=== PATIENT | male | born 1945 | race Caucasian/White ===

== ENCOUNTER → 2023-03-27 07:03 | Day surgery (SDC) | payer OTHER, SELFPAY ==
[2023-03-27 07:47] LABS: Glucose - Point of Care 122 mg/dl (70-99)
[2023-03-27] MEDS: ELIQUIS 5 MG PO (08:43)
--- NOTE | 2023-03-27 09:21 | ITS.CL.CARDI ---
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
Cardioversion
Procedure Report:
Electrophysiology DC cardioversion report
Procedures performed:
1. DC cardioversion to normal sinus rhythm
Indication: Persistent atrial fibrillation
History of present illness: The patient is an 78-year-old man with persistent atrial fibrillation status post PVI x 2 who is referred for elective cardioversion. He is on Eliquis which has been uninterrupted for the last month.
Description of procedure: Informed consent was obtained. Sedation provided by anesthesia staff. The patient was cardioverted with 200 J to normal sinus rhythm. Device reprogramming was performed. The patient tolerated the procedure without
difficulty.
Complications: None
Assessment/Plan:
1. Continue medical therapy as prescribed.
== END ==
LOC: CATH 07:03
PROVIDERS: ATTENDING PHYSICIAN Internal Medicine Interventional Cardiology
DX: I48.19 Other persistent atrial fibrillation (principal); I48.92 Unspecified atrial flutter; I25.10 Atherosclerotic heart disease of native coronary artery without angina pectoris; I10 Essential (primary) hypertension; E78.5 Hyperlipidemia, unspecified; G47.33 Obstructive sleep apnea (adult) (pediatric); Z87.891 Personal history of nicotine dependence; Z79.01 Long term (current) use of anticoagulants; Z79.82 Long term (current) use of aspirin
CPT/HCPCS: 82962; 92960; 93005

== ENCOUNTER 2023-04-15 19:32 | Inpatient (IN) | payer OTHER, SELFPAY ==
[2023-04-15] VITALS (12 sets, daily range): BP systolic 111–167; BP diastolic 73–113; BMI 28.9; BMI 29.3
[2023-04-15 17:31] LABS: % Basophils 0.7 % (0-2); % Eosinophils 3.7 % (0-6); % Immature Granulocytes 0.7 % (0-0.5); % Monocytes 7.5 % (1.7-9.3); % Neutrophils 75.4 % (42.2-75.2); Absolute Basophils 0.1 10^3/uL (0-0.2); Absolute Eosinophils 0.3 10^3/uL (0-0.7); Absolute Immature Granulocytes 0.1 10^3/uL (0-0.05); Absolute Monocytes 0.6 10^3/uL (0.1-0.6); Absolute Neutrophils 6.1 10^3/uL (1.4-6.5); Hematocrit 39.7 % (39.0-52.0); Hemoglobin 13.2 g/dL (13.0-18.0); Mean Corp Hgb Conc. 33.2 g/dL (33.0-37.0); Mean Corpuscular Hgb 29.5 pg (27.0-31.0); Mean Corpuscular Volume 88.6 fL (80.0-94.0); Mean Platelet Volume 10.3 fL (7.4-10.4); Nucleated Red Blood Cells % 0 % (-); Platelet Count 483 10^3/uL (130-400); Red Blood Cell Count 4.48 10^6/uL (4.70-6.10); White Blood Cell Count 8.1 10^3/uL (4.8-10.8)
[2023-04-15 17:45] LABS: ALT (SGPT) 14 U/L (0-50); AST (SGOT) 23 U/L (17-59); Alkaline Phosphatase 151 U/L (38-126); Blood Urea Nitrogen 13 mg/dl (9-20); Calcium 8.1 mg/dl (8.4-10.2); Carbon Dioxide 21 mmol/L (22-30); Chloride 107 mmol/L (98-107); Estimated Creatinine Clearance 76 ml/min; Glucose 142 mg/dl (70-99); Potassium 4.5 mmol/L (3.5-5.1); Sodium 134 mmol/L (135-145); Total Bilirubin 1.4 mg/dl (0.2-1.3); Total Protein 6.2 g/dl (6.3-8.2); eGFR > 60.00
[2023-04-15 17:54] LABS: Troponin I < 0.012 ng/ml
[2023-04-15 18:11] LABS: NT-proBNP 8130 pg/ml
[2023-04-15 18:47] LABS: Urine Albumin 1+ (Neg - Trace); Urine Bilirubin Negative (Negative); Urine Character Very Cloudy (Clear); Urine Color Yellow; Urine Glucose Negative (Negative); Urine Ketone Negative (Negative); Urine Leukocyte Trace (Negative); Urine Nitrite Negative (Negative); Urine Occult Blood 4+ (Negative); Urine Specific Gravity 1.015 (<1.030); Urine Urobilinogen 2+ (Neg - 1+)
[2023-04-15] MEDS: LASIX 40 MG IV (18:53)
--- NOTE | 2023-04-15 18:55 | ED.GENMED ---
History of Present Illness
General
Chief Complaint: Heart Rate Problem
Time Seen by Provider: 04/15/23 17:23
Travel History
Have you had any contact with someone who has COVID-19?: No
Do you have any symptoms of coronavirus? Fever > 100 degrees, chills, cough, shortness of breath, sore throat, loss of taste or smell, muscle aches, or headache?: No
History of Present Illness
History of Present Illness:
78-year-old male with history of paroxysmal A-fib on Eliquis, hypertension presents to the emergency department for evaluation of dyspnea on exertion and general malaise. Symptoms have been ongoing intermittently since he underwent a cardiac
ablation at this hospital in February, but over the past few days been worse. He does not weigh himself routinely and is not on any diuretic medications. He did require an elective cardioversion in mid March due to recurrent A-fib. He has no
symptoms attributable to the A-fib at this time as he denies any palpitations or chest pain, states for as long as he can remember he has not had any symptomatic A-fib. Denies orthopnea or chest pain at present. No leg swelling.
No documented echocardiogram on file
Review of Systems
Review of Systems
Allergies reviewed?: Yes
All Other Systems: ROS reviewed and negative except as documented in HPI and ROS
Phy Exam
Physical Exam
Physical Exam:
GEN: Well appearing, NAD, WDWN
Eyes: PERRLA, EOMs intact, no scleral icterus
HENT: NCAT, oral mucosa moist, + JVD
Lungs: Normal respiratory effort, bibasilar crackles, no wheezes
Cardiac: RRR, no M/R/G, no peripheral edema. Radial pulses 2+ bilat
Neuro: AO x 3
MSK: No gross deformity or ecchymosis. No edema. No digital clubbing
Skin: No rashes, petechiae. Normal color, no pallor or jaundice.
Psych: Calm, cooperative, proper hygiene
Course
Orders/Labs/Results
Orders:
Orders
04/15/23 17:04
Electrocardiogram (*1) Urgent
Reason for Study: Chest Pain
Cardiac Monitoring- Treatment ONCE
EKG- Treatment ONCE
IV Insert/Care/Rem.- Treatment PRN
O2 Therapy [RESP] Urgent
Titrate/Wean O2 to maintain O2 sat greater than (%): 90
Special Instructions: Maintain sats >/=90%
Pulse Ox/spot Check [RESP] Urgent
Quantity: 1
Special Instructions: ON ROOM AIR
04/15/23 17:09
Complete Blood Count/With Diff Urgent
Comprehensive Metabolic Panel Urgent
NT-proBNP Urgent
Comment: ADD ON
Troponin I Urgent
04/15/23 17:37
Add On- LAB Urgent
Tests Added?: BNP
CR Chest - 2 Views Urgent
Comment:
Reason For Exam: SOB
04/15/23 18:34
Urinalysis Reflex To Culture Urgent
Date Specimen was Collected: 04/15/23
Time Specimen was Collected: 18:26
Urine Microscopic Reflex Cult Urgent
04/15/23 18:38
Diltiazem HCl [Cardizem] 20 mg IV NOW STA
04/15/23 18:45
Diltiazem 125 mg/125 ml Nss [Cardizem] 125 mg in 125 ml IV PER PROTOCOL
Initial dose in mg/hr, then titrate:: 5
Titrate to keep:: Heart rate 80-100 bpm
Titrate by mg/hr:: 5 mg/hr
Frequency of titrations (minutes):: 15
Maximum dose in mg/hr:: 15
Furosemide [Lasix] 40 mg IV ONCE ONE
Abnormal Lab Results
04/15/23 04/15/23
17:09 18:34
RBC 4.48 L 10^6/uL
(4.70-6.10)
RDW 16.0 H %
(11.5-14.5)
Plt Count 483 H 10^3/uL
(130-400)
Abs Immat Gran (auto) 0.1 H 10^3/uL
(0-0.05)
Absolute Lymphs (auto) 1.0 L 10^3/uL
(1.2-3.4)
Immature Gran % 0.7 H %
(0-0.5)
Neutrophils % 75.4 H %
(42.2-75.2)
Lymphocytes % 12.0 L %
(20.5-51.1)
Sodium 134 L mmol/L
(135-145)
Carbon Dioxide 21 L mmol/L
(22-30)
Glucose 142 H mg/dl
(70-99)
Calcium 8.1 L mg/dl
(8.4-10.2)
Total Bilirubin 1.4 H mg/dl
(0.2-1.3)
Alkaline Phosphatase 151 H U/L
(38-126)
Total Protein 6.2 L g/dl
(6.3-8.2)
Ur Occult Blood Reflex 4+ A
(Negative)
Urine Urobilinogen 2+ A
(Neg - 1+)
Leukocyte Esterase Rfl Trace A
(Negative)
Urine Albumin (Reflex) 1+ A
(Neg - Trace)
04/15/23 17:09
04/15/23 17:09
Vital Signs
Initial and Last Documented VS:
Initial Vital Signs
Temp Pulse
98.7 F 134
04/15/23 17:03 04/15/23 17:03
Last Documented Vital Signs
Temp Pulse Resp BP Pulse Ox
98.7 F 126 28 137/94 97
04/15/23 17:03 04/15/23 17:45 04/15/23 17:45 04/15/23 17:06 04/15/23 17:45
MDM/Problems Addressed
MDM/Problems Addressed:
78-year-old male presents in rapid atrial fibrillation. I suspect the majority of his symptoms are driven by acute congestive heart failure given the dyspnea on exertion, elevated BNP, increased vascular markings and left pleural effusion on chest
x-ray. I did discuss the possibility for elective cardioversion with the patient however he informs me that he has been cardioverted in the past without any sustained benefit from this. At this time given that he is not in extremis I do not feel
it is necessary to perform an urgent ED cardioversion. Rather we will rate control him and start him on diuresis in the hopes that he will convert spontaneously. Will admit to the hospitalist service for further management
Of note, the patient was spontaneously noted to have hematuria when voiding in the emergency department. He notes that this is the first time this is occurred and was not going going prior to current hospitalization. Urinalysis sent, will follow
while inpatient
Comment
Comment:
Initial EKG independently interpreted by me shows a rapid atrial fibrillation at a rate of 130 with lateral T wave inversions but no other acute ischemic changes.
*Critical Care Note
Total Time (30-74mins, 75-104mins- exclusive of procedures): 35 minutes
comment:
Critical care time: 35 minutes
Critical care time was exclusive of: Separately billable procedures, treating other patients, and teaching time
Critical care was necessary to treat or prevent imminent or life-threatening deterioration of the following conditions: Rapid atrial fibrillation/CHF
Critical care time spent personally by me on the following activities:
[x] Review of old charts
[x] Obtaining history from patient or surrogate
[x] Ordering and review of the laboratory studies
[x] Ordering and review of radiographic studies
[x] Ordering and performing treatments and interventions
[x] Patient patient's response to treatment
[x] Development of treatment plan with patient or surrogate
ED Attending Note
-
Portions of this chart may have been created with voice recognition software.� Occasional wrong word or��sound alike� substitutions may have occurred due to the inherent limitations of voice recognition software.
Discharge Plan
Departure
Patient Disposition: Admit
Date of Disposition: 04/15/23
Time of Disposition: 18:58
Admit to: IMU
Presentation/result/management discussed w/ accepting MD/DO: Hospitalist
Discharge Problem:
Atrial fibrillation with RVR
Prescriptions:
No Action
atorvastatin 10 mg Tablet
10 mg PO DAILY
metoprolol succinate 50 mg Tablet Extended Release 24 Hr
50 mg PO Q12H
ascorbic acid (vitamin C) [Vitamin C] 500 mg Tablet
500 mg PO DAILY
omeprazole 20 mg Capsule,Delayed Release(Dr/Ec)
20 mg PO DAILY
vitamin B complex Capsule
1 cap PO DAILY
Eliquis 5 mg Tablet
5 mg PO BID
ramipril 10 mg Capsule
10 mg PO BID
aspirin 81 mg Capsule
81 mg PO DAILY
ferrous sulfate [Iron (ferrous sulfate)] 325 mg (65 mg iron) Tablet
325 mg PO DAILY
Referrals:
Sheron Dow MD [Family Provider] -
Interventions
Interventions:
*Risk Screen - Suicide Last Done: 04/15/23 18:00
*General Assessment Last Done: 04/15/23 17:06
*Neglect/Abuse Screening Last Done: 04/15/23 18:00
ED- Fall Risk Assessment Last Done: 04/15/23 17:59
*ED COVID-19 Vaccine History Last Done: 04/15/23 17:05
ED- Cardiac Assessment Last Done: 04/15/23 17:59
ED- Pulmonary Assessment Last Done: 04/15/23 17:59
[2023-04-15] MEDS: CARDIZEM 20 MG IV (18:56)
[2023-04-15] MEDS: BENADRYL 12.5 MG IV (19:10)
[2023-04-15 19:29] LABS: Urine Red Blood Cell >100 /HPF (0-2)
[2023-04-15] MEDS: CARDIZEM 125 IV (19:40)
--- NOTE | 2023-04-15 19:40 | HPS.HSE ---
Family Physician
-
Family Physician: Sheron Dow
Chief Complaint
-
Fatigue and shortness of breath
History of Present Illness
Pleasant 78-year-old male who complains daughter at bedside with known history of A-fib and recently cardioversion anticoagulated with Eliquis, hypertension, and dyslipidemia. Presented to the hospital as he was not feeling well all day long today.
He admitted he was doing okay yesterday and even able to walk his dog 7 times yesterday but today he barely able to do 3 times and use as to cut it short because of the feeling fatigue and shortness of breath.
Denies any palpitation or any chest pain denies any fever or chill, no cough or congestion, no headache or vision change or any weakness or numbness in extremities.
Admit since January or February on chronic had a cardioversion done they change his anticoagulation from Pradaxa to Eliquis and since he has been taking Eliquis he is not doing well and not eating drinking well and has better taste in his mouth,
denies bleeding event or change in stool or urine color.
Noncompliant with medication.
Workup in the ER basically showed A-fib with RVR and elevated BNP but he does not look like fluid overloaded.
Proceed with his Lasix and Cardizem bolus and drip, review of some itching after 1 dose OF Benadryl and the symptoms resolved. Initial heart rate was 140s but now is in low 100 feels some improvement.
Medical History
Past Medical History
Past Medical History: Reports Other
Additional Past Medical History:
Past medical history reviewed:
A-fib anticoagulated with Eliquis
Pretension
Sleep apnea
C.
Social history: Lives at home with his independently, does not smoke and quit alcohol 15 years ago
Past Surgical History: Reports Other
Social History
Alcohol: Other
Family History
Family History: Other
Allergies / Home Medications
Allergies reflects when Allergies were last updated in [facility].
Home Medications with original date entered in [facility]
Allergy/Medication List:
Allergies
Allergy/AdvReac Type Severity Reaction Status Date / Time
clopidogrel [From Plavix] Allergy Severe Hives Verified 01/30/23 12:43
Home Medications
apixaban 5 mg tablet (Eliquis) 5 mg PO BID 03/14/22
ascorbic acid (vitamin C) 500 mg tablet (Vitamin C) 500 mg PO BID 03/14/22
atorvastatin 10 mg tablet 10 mg PO DAILY 03/14/22
metoprolol succinate 50 mg tablet,extended release 24 hr 50 mg PO BID 03/14/22
omeprazole 20 mg capsule,delayed release 20 mg PO DAILY PRN gi issues 03/14/22
vitamin B complex 1 cap PO DAILY 03/14/22
aspirin 81 mg capsule 81 mg PO HS 01/30/23
ramipril 10 mg capsule 10 mg PO BID 01/30/23
ferrous sulfate 325 mg (65 mg iron) tablet (Iron (ferrous sulfate)) 325 mg PO BID 02/21/23
amiodarone 200 mg tablet 200 mg PO DAILY 04/15/23
Review of Systems
-
A 12 point ROS was completed and negative except as noted: Yes
Physical Exam
Vital Signs
Vital Signs
Temp Pulse Resp BP Pulse Ox
98.7 F 118 29 118/73 95
04/15/23 17:03 04/15/23 19:04 04/15/23 19:04 04/15/23 19:04 04/15/23 19:04
physical exam:
General: Awake, alert and oriented x3, not in distress and holds appropriate conversation.
HEENT: No active discharge, ecchymosis or bruising, moist lips, tongue and mucous membrane.
Eyes: No discharge or red conjunctiva, no nystagmus, pupils are reactive and equal
Neck:Supple, no JVD no bruit no goiter.
Respiratory: Normal AP contour and diameter, normal chest wall movement, normal respiratory effort, no respiratory distress,
Lungs: Good air entry bilaterally, no wheezing or rhonchi, no rales or crackles
Heart: S1, S2 mildly tachycardic with irregular irregular rhythm, mild lower extremities edema, no added sound.
Gastrointestinal: Positive bowel sounds, soft, nontender, no guarding or rigidity or organomegaly
Musculoskeletal: , no chest wall abnormality or tenderness. All joints and extremities have good range of motion, no muscle tenderness or any joint swelling or tenderness.
Extremities: Mild pitting edema, good peripheral pulses, good range of motion
Skin: Warm and dry, no ulceration, normal color.
Neurological: Awake, alert and oriented x3, no facial droop, moves extremities freely speech clear and comprehensive, good muscle tone, normal sensory and motor function
Psychiatric: Normal mood, normal thought and judgment, normal affect,
Physical Exam
General: Other
Laboratory Results
-
04/15/23 17:09
04/15/23 17:09
Laboratory Results
Total Bilirubin 1.4 mg/dl (0.2-1.3) H 04/15/23 17:09
AST 23 U/L (17-59) 04/15/23 17:09
ALT 14 U/L (0-50) 04/15/23 17:09
Alkaline Phosphatase 151 U/L (38-126) H 04/15/23 17:09
Troponin I < 0.012 ng/ml 04/15/23 17:09
Chest x-ray:Mild left basilar opacification which could represent subsegmental atelectasis and small left pleural effusion. Pneumonia cannot be excluded.
EKG show A-fib with RVR, rate 130, QTc 479, nonspecific ST-T wave abnormality.
Data Reviewed
-
Diagnostic Radiology: Image Personally Visualized and interpreted, Discussed with Physician, Discussed with Nurse, Discussed with Patient and Discussed with Family
Medical Tests (Nuc Med, Echo, EKG etc): Image Personally Visualized and interpreted, Discussed with Nurse, Discussed with Patient and Discussed with Family
Lab Data: Labs Reviewed by me, Discussed with Nurse, Discussed with Patient and Discussed with Family
Old Records: Reviewed
Impression/Plan
-
IMPRESSION:
78-year-old male presented with fatigue and exertional shortness of breath started earlier today, which likely secondary to the A-fib with RVR with questionable CHF with possibility, does not look overloaded.
A-fib with RVR, with a long history of status post cardioversion recently, anticoagulated Eliquis,
Not doing well with Eliquis
Shortness of breath
Doubted CHF or fluid overload
Hypertension
Dyslipidemia
Hyponatremia
Mild metabolic acidosis
Hypocalcemia
Abnormal urinalysis but no urinary symptoms
PLAN:
Admit in IVU
Cardizem bolus for given and drip started both on hold. Was concern of allergy,, will start on a low-dose of Cardizem as heart rate still high and will monitor for any allergic reaction.
Continue milrinone and Lopressor
Recheck lab
Cardiology consult
Likely need an echo
Received a dose of IV Lasix will hold on further diuresis for now
Already feeling better with heart rate slowing down.
Monitor vital sign.
Hold ramipril as pressure on the low side and need rate control medication.
According to the patient since started on Eliquis he is not doing well prophylaxis appetite and having bitter taste in his mouth all the time, that was in January or February, I will hold Eliquis and start Xarelto see how is he doing on this. He
took his morning dose but not evening.
Continue omeprazole
All discussed with the patient and the daughter at the bedside
CODE STATUS full code
DVT prophylaxis Xarelto
[2023-04-15] MEDS: TOPROL XL 50 MG PO (21:51)
[2023-04-15] MEDS: XARELTO 20 MG PO (21:51)
--- NOTE | 2023-04-15 23:38 | PTCARENOTE ---
received the patient from the ED at approx 2130. AAox3. oob, standby assist. steady on his feet. denies any lightheadedness/dizziness. HR Afib 120s-130s. increased rates with movement. patient denies any palps/sob. cardizem gtt increased. cardizem
gtt currently at 15 ml/hr. 95% on RA. reviewed plan of care with patient and verbalized understanding. CHF/Afib booklets provided and answered all questions. call prince within reach. calls appropriately.
HR currently Afib 90s. bp 111/74.
patient urinated in the urine and some blood was noted on top of urinal. yellow urine. patient states abrasion on penis, 'it has happened before' per patient. on assessment, small amount of blood noted at the tip of penis. cleansed. educated patient
to inform Rn with any other changes. monitoring in urinal.
[2023-04-16] VITALS (7 sets, daily range): BP systolic 115–129; BP diastolic 66–86; BMI 28.6
[2023-04-16] MEDS: CARDIZEM 125 IV ×3 (03:25→20:13)
[2023-04-16 04:11] LABS: Blood Urea Nitrogen 14 mg/dl (9-20); Calcium 8.4 mg/dl (8.4-10.2); Carbon Dioxide 26 mmol/L (22-30); Chloride 104 mmol/L (98-107); Estimated Creatinine Clearance 63 ml/min; Glucose 110 mg/dl (70-99); Potassium 4.1 mmol/L (3.5-5.1); Sodium 139 mmol/L (135-145); eGFR > 60.00
[2023-04-16 04:41] LABS: TSH 1.67 uIU/ml (0.47-4.68)
--- NOTE | 2023-04-16 08:19 | W.PN.HOSP.TC ---
Today's Communication/Plan
-
Cardiology consult
Urology consult
Continue rate control
Assessment / Plan
Assessment / Plan
Gen-AAOx3, NAD
HEENT-NC, AT, anicteric, clear oral mm
Neck-supple
CV-reg, no M, +S1/S2
Lungs-clear B/L
Abd-soft, NT, ND
Ext-no edema
Musculoskeletal-no cyanosis, clubbing
Skin-warm and dry
Neuro-grossly non-focal
Psych-calm, cooperative
Acute hypoxic respiratory insufficiency - suspect related to uncontrolled and rapid atrial fibrillation. Symptoms resolved with rate control. Chest x-ray shows mild left basilar opacification possibly representing subsegmental atelectasis and
small left pleural effusion. Clinically doubt pneumonia or congestive heart failure.
Rapid atrial fibrillation -rate improved on Cardizem drip. Continue metoprolol, amiodarone. Was on Eliquis at home and patient was under the belief that it was making him feel lousy, short of breath. It was changed to Xarelto last night, but I
doubt the Eliquis was the etiology of his symptoms. Discussed with patient.
Cardiology consulted. Has had difficult to control atrial fibrillation requiring multiple cardioversions and ablation.
TSH normal.
Hyponatremia -resolved.
Hypocalcemia -resolved.
Essential hypertension -stable now. Had hypertensive urgency last night that resolved.
Hyperlipidemia -continue atorvastatin.
Hematuria -noted on urinalysis. He does not have a urologist. He had gross hematuria a few years ago but he did not pursue a workup. Will ask urology to see in consultation.
Full code
Anticipated Discharge: > 48 hours
Subjective/Interval History
-
Date of Service: April 16, 2023
Patient seen and examined. Feeling better. Shortness of breath resolved.
Objective Data
-
Labs:
Laboratory Results
04/16/23
03:29
Sodium 139
Potassium 4.1
Chloride 104
Carbon Dioxide 26
BUN 14
Creatinine 0.9
Glucose 110 H
Calcium 8.4
Vital Signs:
Vital Signs
Temp Pulse Resp BP Pulse Ox
97.6 F 105 16 115/66 93
04/16/23 06:52 04/16/23 08:00 04/16/23 06:52 04/16/23 06:52 04/16/23 06:52
I&O
04/15/23 04/16/23 04/17/23
06:59 06:59 06:59
Intake Total 150 / 150
Output Total 1800 / 1800
Balance -1650 / -1650
Review of Systems
-
History Source: Patient
All other systems: Reviewed and negative
--- NOTE | 2023-04-16 08:58 | CON.CAR ---
Addendum entered and electronically signed by Jaylon Alvarado DO 04/16/23 11:22:
I saw and examined the patient.
The Solar Power Installer's note was reviewed and I agree with the note.
Comment:
Plan:
Recent PVI feb 21 2023 with recurrence and CV Mar 27 2023 and presents with recurrent aFib with RVR
Reviewed with EP, Amiodarone 200 mg TID for now
IV Cardizem for now and cont outpt Toprol. If fails to convert then cardioversion in next 24-48 hrs.
Cont Eliquis as his insurance does not cover xarelto. Reviewed with CM.
Urology eval ongoing and will need urology clearance prior to cardioversion given hematuria.
Stop ASA as PCI is remote
Cont gentle diuresis. pBNP 8130. He had rash with lasix so would give IV Edecin 25 mg today.
Trop negative.
Original Note:
Consultation
Consultation Request
Date/Time Consultation Performed: 04/16/23
Requesting Provider: Dr. Pearson
Performing Provider: Chela Duran PA-C for Dr. Alvarado
Reason for Consultation: afib
Medical History
-
Chief Complaint: SOB
History of Present Illness:
Patient is an 78-year-old male with past medical history of CAD status post remote PCI of OM1/circumflex in 2002, hypertension, hypercholesterolemia, JESÚS not on CPAP, former smoker, persistent atrial fibrillation status post PVI 03/2022, with repeat
PVI 02/21/2023. He recurred postprocedure and required cardioversion on 03/27/2023. He presented back to ER yesterday with worsening dyspnea on exertion and was found to be in atrial fibrillation with rapid ventricular response. He previously had
been on amiodarone therapy, however this was stopped after his 2023 ablation. He reports approximately 6 pound weight loss over the last several months, unintentional. He reports poor appetite. Reports occasional dry cough, no fevers or chills.
He received IV Lasix x 1 in the ER last evening, and developed a rash, improved after Benadryl. Also with UA positive for 4+ occult blood and with dark urine which just started last evening.
PMH:
Persistent, symptomatic atrial fibrillation
History of PVI 03/2022, repeat PVI 02/21/2023
S/p cardioversion 03/27/2023
Previously on amiodarone, stopped post ablation
Chronic anticoagulation, previously with Pradaxa, more recently Eliquis
CAD status post remote PCI of OM1/circumflex in 2002
LVH
Hypertension
Hypercholesterolemia
JESÚS not on CPAP
GERD
Former smoker
Past Medical History
Past Medical History: Other (in HPI)
Social History
Tobacco: Former Smoker
Personal:
Living: With Family
Employment: Retired
Family History
Family History: Other (CVA in father)
Allergies / Home Medications
Allergy/AdvReac Type Severity Reaction Status Date / Time
clopidogrel [From Plavix] Allergy Severe Hives Verified 01/30/23 12:43
Medication Instructions Recorded Confirmed Type
apixaban 5 mg tablet (Eliquis) 5 mg PO BID Blood Clot 03/14/22 04/15/23 History
Prevention/Tx
ascorbic acid (vitamin C) 500 mg 500 mg PO BID Supplement 03/14/22 04/15/23 History
tablet (Vitamin C)
atorvastatin 10 mg tablet 10 mg PO DAILY High Cholesterol 03/14/22 04/15/23 History
metoprolol succinate 50 mg 50 mg PO BID Heart 03/14/22 04/15/23 History
tablet,extended release 24 hr Disease/Condition
omeprazole 20 mg capsule,delayed 20 mg PO DAILY PRN gi issues 03/14/22 04/15/23 History
release
vitamin B complex 1 cap PO DAILY Supplement 03/14/22 04/15/23 History
aspirin 81 mg capsule 81 mg PO HS Blood Clot 01/30/23 04/15/23 History
Prevention/Tx
ramipril 10 mg capsule 10 mg PO BID Blood Pressure 01/30/23 04/15/23 History
ferrous sulfate 325 mg (65 mg 325 mg PO BID Supplement 02/21/23 04/15/23 History
iron) tablet (Iron (ferrous
sulfate))
amiodarone 200 mg tablet 200 mg PO DAILY Arrhythmia 04/15/23 04/15/23 History
Review of Systems
-
History Source: Patient
All other systems: Negative unless noted
Physical Exam
Vital Signs
Temp Pulse Resp BP Pulse Ox
97.6 F 105 16 115/66 93
04/16/23 06:52 04/16/23 08:00 04/16/23 06:52 04/16/23 06:52 04/16/23 06:52
Lab Results
04/15/23 17:09
04/16/23 03:29
Troponin I < 0.012 ng/ml 04/15/23 17:09
Muz-K-Ugvoaikfstr Pept 8130 pg/ml 04/15/23 17:09
Physical Exam
General: No Apparent Distress and Comfortable
HEENT: Normocephalic, Anicteric and Moist Mucous Membranes
Respiratory: Crackles (at bases) and Non Labored Respirations
Cardiac: S1/S2 and Irregular Rhythm
GI: Soft, Non Tender, Non Distended and Normal Bowel Sounds
Musculoskeletal: No Clubbing, No Cyanosis and Edema (trace of B/L LE)
Skin: Warm and Dry
Neuro: AO x 3
Impression / Plan
-
Primary Harp Regulator: Dr. Houston of [facility]
Primary EP: Dr. Diaz
Assessment:
Presentation with STEPHENS
Persistent, symptomatic atrial fibrillation, now with RVR
History of PVI 03/2022, repeat PVI 02/21/2023
Previously on amiodarone, stopped post ablation 02/21/2023
S/p cardioversion 03/27/2023
Chronic anticoagulation, previously with Pradaxa, more recently Eliquis
Hematuria
CAD status post remote PCI of OM1/circumflex in 2002
LVH
Hypertension
Hypercholesterolemia
JESÚS not on CPAP
GERD
Former smoker
ECHO 2018: EF 55%, mild LVH, trace TR, PAP 19 mmHg
Plan:
-Patient who underwent recent repeat PVI 02/21/2023 with recurrence post requiring cardioversion 03/27/2023 presents back to ER with dyspnea on exertion. Found to be back in A-fib with RVR.
-Resume Amio at higher dose of 200 mg 3 times daily. Continue IV Cardizem at 15 for now. also on OP toprol 50mg BID.
-holding OP ramipril
-Reports generally not feeling well he thinks since transitioning from Pradaxa to Eliquis due to cost. He has been transitioned to Xarelto per primary service last evening.
-He is noted to have dark urine, and UA with 4+ occult blood and greater than 100 red blood cells. He does note some discomfort with urinating. Urology to evaluate. Hemoglobin stable. will stop asa with remote stent and current bleeding
-proBNP 8130. CXR with small L pleural effusion. Status post dose of IV Lasix 40mg last evening. Patient reportedly developed rash shortly after receiving dose, improved s/p benadryl. Weight reportedly down 5 pounds if accurate overnight. he is
not on diuretic as OP. if additional diuretic required, would consider edecrin.
-check echo, last from 2018 as above
-trop negative x1
-TSH WNL
-d/w nursing. d/w hospitalist
Data Reviewed
-
EKG: Tracing Personally Visualized and interpreted
Radiology: Report Reviewed by me
Medical Tests (Nuc Med, Echo etc): Report Reviewed by me
Labs: Labs Reviewed by me
Old Records: Reviewed
[2023-04-16] MEDS: LIPITOR 10 MG PO (09:28)
[2023-04-16] MEDS: PROTONIX 40 MG PO (09:28)
[2023-04-16] MEDS: TOPROL XL 50 MG PO ×2 (09:28→20:14)
[2023-04-16] MEDS: PACERONE 200 MG PO ×3 (09:28→22:38)
--- NOTE | 2023-04-16 09:33 | CM ---
Addendum entered by Bettye Frank 04/16/23 11:32:
Telephone call to [facility], ([phone]) to check on coverage for Xaretlo 20 mg po daily. [facility] states Xarelto 20 mg po daily is not on his formulary plan.
Original Note:
Reviewed chart. Met with Mr. Peralta to review discharge plans. He states prior to admission he resides with his spouse in an apartment at [facility]. He states he takes care of his spouse. He states he has private help that
comes in twice a day to assist in her care. They are there 2-3 hours twice a day. He states his private help and children are taking care of her while he is here. He states prior to admission he was independent with ambulation and adls. He
states the DME in the home is for his spouse, that he does not have any DME. He states he has a prescription plan and uses mail order and [facility] when needed. Will need to see his current functional level to see if he will have any skilled
care needs. Medical work-up in progress. The discharge plan is to return home to his apartment at [facility] with his spouse when medically stable.
--- NOTE | 2023-04-16 10:25 | PTCARENOTE ---
Rec'd pt AAOx3 w/no c/o CP or SOB. Pt states he 'feels less SOB'. Pt's VS stable & is Afib w/ a better controlled rate on Cardizem drip IV as ordered. Cardizem drip infusing as ordered through patent L FA IV line. Pt w/small amt of blood on urinal &
dark еелна urine. Hospitalist notified by Cardiology. CT scan ordered for pt. Pt made NPO until scan is completed. Pt w/call prince within reach & no addtl needs at this time.
--- NOTE | 2023-04-16 13:45 | CON.MD ---
Consultation - Medical
-
see dictated note
pt on chronic anticoagulation
remote hx of hematuria
on admit- dark urine- perhaps some visable blood
ua + for rbc's
pt has no urinary complaints
current urine clear to елена
urogram shows no obvious tumor/stone- but sig bph and likely chronic urinary retention
plan
check ucx
start proscar and flomax to facilitate emptying
check pvr with next vois and in am- but WOULD NOT CATH unless pt symptomatic as this would almost certainly lead to hematuria
for now- can continue anticoagulation while cardiac status stabilized
will follow
[2023-04-16] MEDS: FLUSH (NSS) 2 FLUSH IV (13:52)
[2023-04-16] MEDS: EDECRIN 25 MG IV (13:52)
[2023-04-16] MEDS: PROSCAR 5 MG PO (15:15)
[2023-04-16] MEDS: FLOMAX 0.400000000000000022 MG PO (20:14)
[2023-04-16] MEDS: ELIQUIS 5 MG PO (20:14)
[2023-04-17 03:37] VITALS: BP 117/71
[2023-04-17 06:00] VITALS: BMI 28.4
[2023-04-17] MEDS: CARDIZEM 125 IV ×3 (06:03→22:19)
--- NOTE | 2023-04-17 06:17 | PTCARENOTE ---
patient slept well overnight. Afib on tele 70s-90s. bp stable. cardizem gtt infusing at 15 ml/hr. tolerating well. states feeling better.
urinating yellow urine overnight. елена urine this morning. no signs of blood. this morning, patient urinated 200 cc and PVR 500cc. patient denies any discomfort/pain. no distention noted. states he felt like he emptied all the way.
[2023-04-17 07:07] VITALS: BP 123/86
--- NOTE | 2023-04-17 08:09 | W.PN.HOSP.TC ---
Today's Communication/Plan
-
Continue current care
Assessment / Plan
Assessment / Plan
Gen-AAOx3, NAD
HEENT-NC, AT, anicteric, clear oral mm
Neck-supple
CV-reg, no M, +S1/S2
Lungs-clear B/L
Abd-soft, NT, ND
Ext-no edema
Musculoskeletal-no cyanosis, clubbing
Skin-warm and dry
Neuro-grossly non-focal
Psych-calm, cooperative
Acute hypoxic respiratory insufficiency - suspect related to uncontrolled and rapid atrial fibrillation. Symptoms resolved with rate control. Chest x-ray shows mild left basilar opacification possibly representing subsegmental atelectasis and
small left pleural effusion. Clinically doubt pneumonia.
Rapid atrial fibrillation -rate improved on Cardizem drip. Continue metoprolol, amiodarone. Was on Eliquis at home and patient was under the belief that it was making him feel lousy, short of breath. It was changed to Xarelto last night, but I
doubt the Eliquis was the etiology of his symptoms. Discussed with patient. Now back on Eliquis in the hospital.
Cardiology consulted. Has had difficult to control atrial fibrillation requiring multiple cardioversions and ablation.
TSH normal.
Cardiology has increased amiodarone dose to 3 times daily.
Echocardiogram shows LVEF 30 to 35% although this may be underestimated due to rapid atrial fibrillation. Global hypokinesis. Indeterminate diastolic function. Mild to moderate MR.
Acute heart failure with reduced EF exacerbation -elevated BNP of 8130. IV Ethacrynic acid ordered by cardiology given suspected drug allergy to Lasix with rash.
Hyponatremia -resolved.
Hypocalcemia -resolved.
Essential hypertension -stable now. Had hypertensive urgency last night that resolved.
Hyperlipidemia -continue atorvastatin.
Acute/subacute hematuria -noted on urinalysis. Asymptomatic. He does not have a urologist. He had gross hematuria a few years ago but he did not pursue a workup. Appreciate urology input.
Urinary retention -likely chronic and due to enlarged prostate. Proscar, finasteride started. Last bladder scan this morning showed 500 cc. Urology recommends only placing a Maier catheter if patient develops symptoms due to high risk for
worsening hematuria. Discussed with Dr. Martin.
Full code
Anticipated Discharge: > 48 hours
Subjective/Interval History
-
Date of Service: April 17, 2023
Patient seen and examined. No complaints.
Objective Data
-
Vital Signs:
Vital Signs
Temp Pulse Resp BP Pulse Ox
98.1 F 111 20 123/86 97
04/17/23 07:04 04/17/23 07:45 04/17/23 07:04 04/17/23 07:07 04/17/23 07:04
I&O
04/16/23 04/17/23 04/18/23
06:59 06:59 06:59
Intake Total 150 / 150 1240 / 1240
Output Total 1800 / 1800 1925 / 1925
Balance -1650 / -1650 -685 / -685
Review of Systems
-
History Source: Patient
All other systems: Reviewed and negative
--- NOTE | 2023-04-17 09:00 | PTCARENOTE ---
Rec'd pt from prev nsg shift AAOx3 w/no c/o CP or SOB. Pt visibly less dyspneic on exertion than previous assessment yesterday. Pt's VS stable w/HR 80's-90's. Pt remains on Cardizem IV drip as ordered for rate control. Pt is having ongoing urinary
retention issues, but is asymptomatic w/no pressure or pain reported. MDs are aware. Pt OOB amb freq in the room & OOB to for meals. Pt w/no addtl concerns at this time. Plan of care ongoing.
[2023-04-17] MEDS: PROSCAR 5 MG PO (09:10)
[2023-04-17] MEDS: FLOMAX 0.400000000000000022 MG PO ×2 (09:10→21:03)
[2023-04-17] MEDS: LIPITOR 10 MG PO (09:10)
[2023-04-17] MEDS: PACERONE 200 MG PO ×3 (09:10→21:03)
[2023-04-17] MEDS: PROTONIX 40 MG PO (09:10)
[2023-04-17] MEDS: TOPROL XL 50 MG PO ×2 (09:10→21:03)
[2023-04-17] MEDS: ELIQUIS 5 MG PO ×2 (09:10→21:03)
[2023-04-17 11:13] VITALS: BP 121/89
--- NOTE | 2023-04-17 12:21 | W.PN.CARDCBS ---
Addendum entered and electronically signed by Chela Duran PA-C 04/17/23 14:03:
cost of farxiga affordable to patient. will initiate.
Addendum entered and electronically signed by Malena Felton MD 04/17/23 13:05:
I saw and examined the patient.
The Field Instructor's note was reviewed and I agree with the note.
Comment: Clinically stable today just fatigued. Plan for cardioversion tomorrow.
Unfortunately left ventricular ejection fraction remains depressed likely in part related to atrial fibrillation.
Guideline directed medical therapy for heart failure with reduced ejection fraction. Would look into cost of ARB and SGLT2 inhibitor.
Continue to follow EKG and QT interval which has remained stable. Continue amiodarone.
Follow-up with usual railroad surveyor and electrophysiology after discharge. Continue reassessment of ejection fraction
Continue to follow volume status. Rash to sulfa likely
Original Note:
Today's Communication / Plan
-
continue IV cardizem, amio, toprol
follow QTc
continue eliquis
CV in AM
resume ramipril at lower dose
assess cost to patient of SGLT2 inhibitor
follow volume status. may require edecrin for home
Impression / Plan
-
Primary Floor Worker Well Service: Dr. Houston of [facility]
Primary EP: Dr. Diaz
Assessment:
Presentation with STEPHENS
Persistent, symptomatic atrial fibrillation, now with RVR
History of PVI 03/2022, repeat PVI 02/21/2023
Previously on amiodarone, stopped post ablation 02/21/2023
S/p cardioversion 03/27/2023
Chronic anticoagulation, previously with Pradaxa, more recently Eliquis
Hematuria
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
CAD status post remote PCI of OM1/circumflex in 2002
LVH
Hypertension
Hypercholesterolemia
JESÚS not on CPAP
GERD
Former smoker
ECHO 2018: EF 55%, mild LVH, trace TR, PAP 19 mmHg
ECHO 04/16/23: EF 30-35%, global hypokinesis, mild to mod MR, trace AR, mild TR, PAP 31mmHg, pleural effusion present
Plan:
-Patient who underwent recent repeat PVI 02/21/2023 with recurrence post requiring cardioversion 03/27/2023 presents back to ER with dyspnea on exertion. Found to be back in A-fib with RVR.
-remains in rate controlled afib on IV cardizem gtt @15, toprol 50mg BID, and amiodarone mini load 200mg TID.
-repeat EKG for QTc monitoring on amio
-appreciate urology input. hgb stable. urine remains 'елена' in color. UCx pending. OP asa stopped as stents remote
-He had previously been on Pradaxa without side effects, however somewhat recently had been transition to Eliquis due to change in cost through his insurance. He reports not feeling as well on Eliquis, with somewhat vague complaints. For now he is
agreeable to continue Eliquis.
-for CV in AM. NPO after midnight
-echo with results as above. 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 continue BB. assess cost to patient of SGLT2 inhibitor. resume OP ramipril at lower dose for now, will also assess cost to patient of arni.
-breathing improved. of note, with rash after dose of IV lasix in ER. no rash with dose of edecrin 04/15. Cr pending 04/16. not on diuretic as OP
Progress Note - Floor Worker Well Service
Subjective
Date of Service: April 17, 2023
reports breathing improved. no palps
Objective
Labs:
04/15/23 17:09
04/16/23 03:29
Labs
Hgb 13.2 g/dL (13.0-18.0) 04/15/23 17:09
Hct 39.7 % (39.0-52.0) 04/15/23 17:09
Plt Count 483 10^3/uL (130-400) H 04/15/23 17:09
Sodium 139 mmol/L (135-145) 04/16/23 03:29
Potassium 4.1 mmol/L (3.5-5.1) 04/16/23 03:29
BUN 14 mg/dl (9-20) 04/16/23 03:29
Creatinine 0.9 mg/dL (0.7-1.3) 04/16/23 03:29
Glucose 110 mg/dl (70-99) H 04/16/23 03:29
Troponins
04/15/23
17:09
Troponin I < 0.012
Vital Signs and I&O:
Vital Signs
Temp Pulse Resp BP Pulse Ox
97.7 F 81 20 121/89 97
04/17/23 11:05 04/17/23 11:30 04/17/23 11:05 04/17/23 11:13 04/17/23 11:15
Vital Signs
Temp Pulse Resp BP Pulse Ox
97.7 F 81 20 121/89 97
04/17/23 11:05 04/17/23 11:30 04/17/23 11:05 04/17/23 11:13 04/17/23 11:15
Intake & Output
04/15/23 04/16/23 04/17/23 04/18/23
07:59 07:59 07:59 07:59
Intake Total 150 / 150 1240 / 1240
Output Total 1800 / 1800 1924 / 1924
Balance -1650 / -1650 -685 / -685
Physical Exam
Physical Exam
GEN: No distress, awake, alert, oriented x3. sitting in chair
HEENT: supple, anicteric, mmm, eomi
LUNGS: Few crackles LLB, no wheezes
CV: Irreg, S1/S2, no murmur
ABD: soft, BS+, NT/ND
EXT: No cyanosis, clubbing, edema
NEURO: Gross non-focal
SKIN: Warm, pink, dry. No rash
--- NOTE | 2023-04-17 13:50 | CM ---
Addendum entered by Bettye Frank 04/17/23 14:01:
Reviewed co-pays with Mr. Peralta and he is agreeable to the co-pay. Updated P.A.
Original Note:
Received consult regarding co-pays for Farxiga 10 mg po daily and Entresto 24/26 po bid. Telephone call to [facility],([phone]) to check on co-pay. Farxiga co-pay os $50.00 for a 90 day supply and $25.00 for a one month supply at local
pharmacy. Entresto 24/26 co-pay would be $50.00 a 90 day supply and $24.30 for a month supply at the local retail pharmacy. He can use the one month free Farxiga coupon and the one month free Entresto coupon. Placed the coupons in his red
discharge folder. Updated Mr. Peralta.
[2023-04-17 14:32] LABS: Blood Urea Nitrogen 16 mg/dl (9-20); Calcium 8.4 mg/dl (8.4-10.2); Carbon Dioxide 25 mmol/L (22-30); Chloride 104 mmol/L (98-107); Estimated Creatinine Clearance 63 ml/min; Glucose 148 mg/dl (70-99); Potassium 4.2 mmol/L (3.5-5.1); Sodium 135 mmol/L (135-145); eGFR > 60.00
[2023-04-17] MEDS: FARXIGA 10 MG PO (14:35)
[2023-04-17] MEDS: ALTACE 2.5 MG PO (14:35)
[2023-04-17 15:13] VITALS: BP 119/72
[2023-04-17 19:18] VITALS: BP 112/66
--- NOTE | 2023-04-17 20:30 | PTCARENOTE ---
Continuation of care of this pt. Assessment unchanged from this RN's earlier assessment. VS stable T 97.8, HR 85, BP 112/66, R 20, 96% on RA. Pt AAOx3 w/no c/o CP or SOB. Cardizem drip IV infusing as ordered through patent IV line. Pt w/call prince
within reach & no addtl needs at this time. Plan of care ongoing.
[2023-04-17 23:30] VITALS: BP 106/66
[2023-04-18 02:05] VITALS: BP 116/71
--- NOTE | 2023-04-18 02:54 | PTCARENOTE ---
Pt. received at 2300 on Cardizem gtt at 15 mg/hr and has remained since, A-fib with rate 70's-80's on the monitor, last BP 116/71. No complaints pain/discomfort, pt. sleeping.
[2023-04-18 03:28] LABS: Blood Urea Nitrogen 18 mg/dl (9-20); Calcium 8.1 mg/dl (8.4-10.2); Carbon Dioxide 23 mmol/L (22-30); Chloride 105 mmol/L (98-107); Estimated Creatinine Clearance 57 ml/min; Glucose 121 mg/dl (70-99); Potassium 4.3 mmol/L (3.5-5.1); Sodium 134 mmol/L (135-145); eGFR > 60.00
[2023-04-18 04:57] VITALS: BMI 28.7
--- NOTE | 2023-04-18 05:08 | PTCARENOTE ---
Pt. bladder scanned for 550ml after urinating 200 ml елена urine. Pt. states he has no pain/discomfort.
[2023-04-18] MEDS: CARDIZEM 125 IV (06:34)
--- NOTE | 2023-04-18 07:30 | PTCARENOTE ---
Pt in NSR, HR 70's, confirmed w/ EKG. Appears to have converted around 06:21 this AM. Pt resting comfortably, no complaints. Cardizem gtt @ 15mg/hr. BP 117/73.
[2023-04-18 07:42] VITALS: BP 117/73
[2023-04-18] MEDS: PACERONE 200 MG PO (08:37)
[2023-04-18] MEDS: FLOMAX 0.400000000000000022 MG PO (08:37)
[2023-04-18] MEDS: PROTONIX 40 MG PO (08:37)
[2023-04-18] MEDS: ALTACE 2.5 MG PO (08:37)
[2023-04-18] MEDS: ELIQUIS 5 MG PO (08:37)
[2023-04-18] MEDS: FARXIGA 10 MG PO (08:37)
[2023-04-18] MEDS: PROSCAR 5 MG PO (08:37)
[2023-04-18] MEDS: TOPROL XL 50 MG PO (08:38)
[2023-04-18] MEDS: LIPITOR 10 MG PO (08:38)
--- NOTE | 2023-04-18 08:53 | W.PN.HOSP.TC ---
Addendum entered and electronically signed by Kennedy Mann DO 04/18/23 12:58:
Hematuria exacerbated by anticoagulation with Eliquis.
Acute heart failure exacerbation -no known history of heart failure in the past. 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
Addendum entered and electronically signed by Kennedy Mann DO 04/18/23 09:56:
I spoke with cardiology team, they recommend discharge today with outpatient follow-up. Will also have him follow-up with urology and PCP.
Original Note:
Today's Communication/Plan
-
Await cardiology input
Assessment / Plan
Assessment / Plan
Gen-AAOx3, NAD
HEENT-NC, AT, anicteric, clear oral mm
Neck-supple
CV-reg, no M, +S1/S2
Lungs-clear B/L
Abd-soft, NT, ND
Ext-no edema
Musculoskeletal-no cyanosis, clubbing
Skin-warm and dry
Neuro-grossly non-focal
Psych-calm, cooperative
Acute hypoxic respiratory insufficiency - suspect related to uncontrolled and rapid atrial fibrillation. Symptoms resolved with rate control. Chest x-ray shows mild left basilar opacification possibly representing subsegmental atelectasis and
small left pleural effusion. Clinically doubt pneumonia. Oxygenation normal on room air.
Rapid atrial fibrillation -spontaneously converted to sinus rhythm. Cardioversion canceled. Continue metoprolol, amiodarone, Eliquis.
Cardiology following. Has had difficult to control atrial fibrillation requiring multiple cardioversions and ablation.
TSH normal.
Cardiology has increased amiodarone dose to 3 times daily.
Echocardiogram shows LVEF 30 to 35% although this may be underestimated due to rapid atrial fibrillation. Global hypokinesis. Indeterminate diastolic function. Mild to moderate MR.
Acute heart failure with reduced EF exacerbation -elevated BNP of 8130. IV Ethacrynic acid ordered by cardiology given suspected drug allergy to Lasix with rash. Weight stable at 85 kg. Admission weight was 87 kg. [facility] initiated.
Hyponatremia -134.
Essential hypertension -stable now.
Hyperlipidemia -continue atorvastatin.
Acute/subacute hematuria -noted on urinalysis. Asymptomatic. He does not have a urologist. He had gross hematuria a few years ago but he did not pursue a workup. Appreciate urology input.
Urinary retention -likely chronic and due to enlarged prostate. Proscar, finasteride started. Last bladder scan this morning showed 500 cc. Urology recommends only placing a Maier catheter if patient develops symptoms due to high risk for
worsening hematuria. Discussed with Dr. Martin.
Full code
Anticipated Discharge: Within 24 hours
Subjective/Interval History
-
Date of Service: April 18, 2023
Patient seen and examined. Feels fine. No complaints.
Objective Data
-
Labs:
Laboratory Results
04/18/23
02:14
Sodium 134 L
Potassium 4.3
Chloride 105
Carbon Dioxide 23
BUN 18
Creatinine 1.0
Glucose 121 H
Calcium 8.1 L
Vital Signs:
Vital Signs
Temp Pulse Resp BP Pulse Ox
97.7 F 70 20 117/73 97
04/18/23 07:40 04/18/23 08:38 04/18/23 07:40 04/18/23 08:38 04/18/23 07:46
I&O
04/17/23 04/18/23 04/19/23
06:59 06:59 06:59
Intake Total 1240 / 1240 720 / 720
Output Total 1925 / 1925 720 / 720
Balance -685 / -685 0 / 0
Review of Systems
-
History Source: Patient
All other systems: Reviewed and negative
--- NOTE | 2023-04-18 09:36 | W.PN.URO.CBU ---
Today's Communication / Plan
-
�
As he has no hydroureteronephrosis, normal renal function, and is not symptomatic would not recommend placement of a Maier catheter as
this would likely precipitate hematuria
Assessment / Plan
-
Severely enlarged prostate gland with chronic ALLAN but not evidence of obstructive nephropathy
Diagnosis
-
Date of Service: April 18, 2023
-
Patient Diagnosis:
1. Hematuria.
2. BPH with likely chronic urinary retention.
�
Subjective
-
voiding volitionally
Objective
-
Vital Signs
Temp Pulse Resp BP Pulse Ox
97.7 F 70 20 117/73 97
04/18/23 07:40 04/18/23 08:38 04/18/23 07:40 04/18/23 08:38 04/18/23 07:46
Intake and Output
04/17/23 04/18/23 04/19/23
06:59 06:59 06:59
Intake Total 1240 / 1240 720 / 720
Output Total 1924 / 5 720 / 720
Balance -685 / -685 0 / 0
Intake:
Oral fluids 960 / 960 720 / 720
IV fluids (Total) 180 / 180
Cardizem 180 / 180
IV piggybacks 100 / 100
Output:
Urine, Voided 1924 720 / 720
Other:
How many times incontinent 1
MODERATE amount urine
Laboratory Results
04/15/23 17:09
04/18/23 02:14
urine cx: negative
Physical Exam
-
General - well developed, well nourished, no acute distress
Chest - clear bilaterally
Abdomen - soft, non-tender, positive bowel sounds, no CVAT, no incisional pain or distention
Genitalia - normal
Rectal - normal
Skin - warm & dry with no rash
Neuro - AOx3, no motor deficits
Extremities - no clubbing, no cyanosis, no edema
Incision - clean, dry
Dressing - clean, dry, intact
--- NOTE | 2023-04-18 09:37 | W.PN.CARDCBS ---
Addendum entered and electronically signed by Malena Felton MD 04/18/23 10:47:
I saw and examined the patient.
The Script Reader's note was reviewed and I agree with the note.
Comment:
He spontaneously converted to sinus rhythm. Plan as noted with guideline directed medical therapy for heart failure with reduced ejection fraction. Edecrin 25 mg daily given possible allergy to Lasix with rash and itching. Would avoid sulfa
containing medications. Discussed with patient.
Reassess echocardiogram/left ventricular ejection fraction as an outpatient, in the hospital EF 30 to 35% in the setting of atrial fibrillation. Timing to be decided at upcoming office visit.
He is stable for discharge. All questions answered. Lab slips provided. Follow-up arranged.
Original Note:
Today's Communication / Plan
-
back in sinus!
continue amiodarone 200mg BID for 30 days then decrease to 200mg daily
toprol 50mg BID
eliquis 5mg BID
NO ASPIRIN
farxiga 10mg daily
ramipril 2.5mg daily
edecrin 50mg daily
BMP and proBNP in 1 week
OP cardiac follow up arranged. will need repeat echo as OP in several months to reassess EF
Impression / Plan
-
Primary Plant And Instrument Engineer: Dr. Houston of [facility]
Primary EP: Dr. Diaz
Assessment:
Presentation with STEPHENS
Persistent, symptomatic atrial fibrillation, now with RVR
History of PVI 03/2022, repeat PVI 02/21/2023
Previously on amiodarone, stopped post ablation 02/21/2023
S/p cardioversion 03/27/2023
Chronic anticoagulation, previously with Pradaxa, more recently Eliquis
Hematuria
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
CAD status post remote PCI of OM1/circumflex in 2002
LVH
Hypertension
Hypercholesterolemia
JESÚS not on CPAP
GERD
Former smoker
ECHO 2018: EF 55%, mild LVH, trace TR, PAP 19 mmHg
ECHO 04/16/23: EF 30-35%, global hypokinesis, mild to mod MR, trace AR, mild TR, PAP 31mmHg, pleural effusion present
Plan:
-Patient who underwent recent repeat PVI 02/21/2023 with recurrence post requiring cardioversion 03/27/2023 presents back to ER with dyspnea on exertion. Found to be back in A-fib with RVR.
-he spontaneously converted to SR this morning at 6:21AM! he feels improved. CV cancelled. stop IV cardizem gtt.
-will plan to decrease amiodarone dose to 200mg BID for 30 days then decrease to 200mg daily. QTc 477ms. continue toprol 50mg BID
-continue eliquis. follow for recurrent hematuria as OP. OP urology follow up. OP asa stopped this admission as stents remote
-echo with results as above. 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 continue BB. farxiga added this admission. lower dose of OP ramipril resumed, uptitrate as OP as able. consider addition of aldactone as OP.
will need repeat echo to reassess EF as OP
-breathing improved. proBNP 8130. of note, with rash after dose of IV lasix in ER. no rash with dose of edecrin 04/15. Cr stable at 1.0. will plan to DC on edecrin 50mg daily.
-BMP and proBNP in 1 week
-he states he would like to follow up with [facility] moving forward as it is closer where he lives now ([place]). will arrange OP cardiac follow up
-ok for DC from cardiac standpoint
Progress Note - Plant And Instrument Engineer
Subjective
Date of Service: April 18, 2023
reports feeling improved in SR. no CP, SOB.
Objective
Labs:
04/15/23 17:09
04/18/23 02:14
Labs
Hgb 13.2 g/dL (13.0-18.0) 04/15/23 17:09
Hct 39.7 % (39.0-52.0) 04/15/23 17:09
Plt Count 483 10^3/uL (130-400) H 04/15/23 17:09
Sodium 134 mmol/L (135-145) L 04/18/23 02:14
Potassium 4.3 mmol/L (3.5-5.1) 04/18/23 02:14
BUN 18 mg/dl (9-20) 04/18/23 02:14
Creatinine 1.0 mg/dL (0.7-1.3) 04/18/23 02:14
Glucose 121 mg/dl (70-99) H 04/18/23 02:14
Troponins
04/15/23
17:09
Troponin I < 0.012
Vital Signs and I&O:
Vital Signs
Temp Pulse Resp BP Pulse Ox
97.7 F 70 20 117/73 97
04/18/23 07:40 04/18/23 08:38 04/18/23 07:40 04/18/23 08:38 04/18/23 07:46
Vital Signs
Temp Pulse Resp BP Pulse Ox
97.7 F 70 20 117/73 97
04/18/23 07:40 04/18/23 08:38 04/18/23 07:40 04/18/23 08:38 04/18/23 07:46
Intake & Output
04/16/23 04/17/23 04/18/23 04/19/23
07:59 07:59 07:59 07:59
Intake Total 150 / 150 1240 / 1240 720 / 720
Output Total 1800 / 1800 1925 / 1925 720 / 720
Balance -1650 / -1650 -685 / -685 0 / 0
Physical Exam
Physical Exam
GEN: No distress, awake, alert, oriented x3. sitting in chair
HEENT: supple, anicteric, mmm, eomi
LUNGS: Few crackles, no wheezes
CV: Reg, S1/S2, no murmur
ABD: soft, BS+, NT/ND
EXT: No cyanosis, clubbing, edema
NEURO: Gross non-focal
SKIN: Warm, pink, dry. No rash
--- NOTE | 2023-04-18 10:01 | W.DS.TRANS ---
DC Summary - Ortho Rn
-
Discharge Instructions:
Discharge Diagnosis/Procedures Rapid atrial fibrillation, acute heart failure
exacerbation, hyponatremia, urinary retention,
hematuria
Diet 2 Gram Sodium,Low Cholesterol,Low Fat
Activity As tolerated
Driving Restrictions As prior to admission
Bathing Restrictions None
Blood Work BMP and proBNP in 1 week
Specialty Instructions Weigh Daily
Instructions: *[facility] Heart Failure Instructions
Stand-Alone Forms:
Changes to Home Medications: Yes
Discharge Medications:
DC Medications w/original date entered in [facility]
apixaban 5 mg tablet (Eliquis) 5 mg PO BID Blood Clot Prevention/Tx 03/14/22
ascorbic acid (vitamin C) 500 mg tablet (Vitamin C) 500 mg PO BID Supplement 03/14/22
atorvastatin 10 mg tablet 10 mg PO DAILY High Cholesterol 03/14/22
metoprolol succinate 50 mg tablet,extended release 24 hr 50 mg PO BID Heart Disease/Condition 03/14/22
omeprazole 20 mg capsule,delayed release 20 mg PO DAILY PRN gi issues 03/14/22
vitamin B complex 1 cap PO DAILY Supplement 03/14/22
ferrous sulfate 325 mg (65 mg iron) tablet (Iron (ferrous sulfate)) 325 mg PO BID Supplement 02/21/23
amiodarone 200 mg tablet (Pacerone) 200 mg PO BID #60 tabs 04/18/23
dapagliflozin propanediol 10 mg tablet (Farxiga) 10 mg PO DAILY #30 tabs 04/18/23
ethacrynic acid 25 mg tablet 50 mg PO DAILY #60 tabs 04/18/23
finasteride 5 mg tablet 5 mg PO DAILY #30 tabs 04/18/23
ramipril 2.5 mg capsule 2.5 mg PO DAILY #30 caps 04/18/23
tamsulosin 0.4 mg capsule 0.4 mg PO BID #60 caps 04/18/23
Home Medication Changes
Stop aspirin
Pending Results: No
[2023-04-18] MEDS: EDECRIN 50 MG PO (10:16)
[2023-04-18 10:18] VITALS: BP 125/46
--- NOTE | 2023-04-18 11:02 | PN.CDI ---
CDI
- -
CDI:
Physician Documentation Request
Admit Date: 04/15/23 19:32
Dear Doctor Johnathan,
Please review the following and provide your response in the progress notes.
Clinical Indicators:
Pt admitted with Persistent afib/rapid afib found to have systolic CHF
Progress notes 04/16& 04/17 , ' Acute heart failure with reduced EF exacerbation -elevated BNP of 8130. IV Ethacrynic acid ordered by cardiology given suspected drug allergy to Lasix with rash.'
No documented HX of CHF noted in the record and No home meds for CHF
Please provide the acuity of CHF :
Acute
Acute on Chronic ( no change in documentation )
Other
Use of terms such as suspected, likely, concern for, or probable (associated with a specific diagnosis that is being evaluated, monitored, or treated as if it exists) are acceptable and can be coded in the inpatient setting, when documented at the
time of discharge.
Thank you,
Taisha Glass RN
CDI Specialist
[place] [facility]
Please use your independent medical judgment in providing your response.
--- NOTE | 2023-04-18 11:04 | PN.CDI ---
CDI
- -
CDI:
Physician Documentation Request
Admit Date: 04/15/23 19:32
Dear Doctor Johnathan,
Please review the following and provide your response in the progress notes.
Clinical Indicators:
Pt admitted with Persistent afib/rapid afib found to have systolic CHF /Hematuria
Urology consult,' pt on chronic anticoagulation remote hx of hematuria on admit- dark urine- perhaps some visable bloodua + for rbc's..current urine clear to елена..for now- can continue anticoagulation while cardiac status stabilized...'
Outpatient ASA stopped this admit
Please clarify the relationship between these conditions:
Yes, _Hematuria__ is related to/associated with/exacerbated by Eliquis/ASA use ___.
No, _Hematuria __ is not related to/associated with/exacerbated by Eliquis/ASA use ___ but it is due to ___. (Please specify)
Unable to determine
Use of terms such as suspected, likely, concern for, or probable (associated with a specific diagnosis that is being evaluated, monitored, or treated as if it exists) are acceptable and can be coded in the inpatient setting, when documented at the
time of discharge.
Thank you,
Taisha Glass RN
CDI Specialist
[place] [facility]
Please use your independent medical judgment in providing your response.
--- NOTE | 2023-04-18 12:33 | PTCARENOTE ---
Discharge information reviewed w/ patient. Heart failure education continues. All questions answered.
== END 2023-04-18 13:20 | disposition home or self-care (01) | DRG 308 ==
LOC: IVU 19:32
PROVIDERS: Physician Assistant; ADMITTING PHYSICIAN Internal Medicine; ATTENDING PHYSICIAN Hospitalist; CONSULT PHYSICIAN Nuclear Medicine Nuclear Cardiology; EMERGENCY PHYSICIAN Emergency Medicine; FAMILY PHYSICIAN Internal Medicine Geriatric Medicine; OTHER PHYSICIAN Specialist
DX: I48.0 Paroxysmal atrial fibrillation (principal); I50.21 Acute systolic (congestive) heart failure; E87.1 Hypo-osmolality and hyponatremia; J98.11 Atelectasis; D68.32 Hemorrhagic disorder due to extrinsic circulating anticoagulants; I11.0 Hypertensive heart disease with heart failure; Z91.148 Patient's other noncompliance with medication regimen for other reason; Z79.01 Long term (current) use of anticoagulants; R09.02 Hypoxemia; R06.89 Other abnormalities of breathing; E83.51 Hypocalcemia; E78.5 Hyperlipidemia, unspecified; I42.9 Cardiomyopathy, unspecified; I16.0 Hypertensive urgency
CPT/HCPCS: 71046; 74178; 80048; 80053; 81003; 81015; 83735; 83880; 84443; 84484; 85025; 87086; 93005; 93306; 96374; 96375; 99291; Q9967

== ENCOUNTER → 2023-05-22 06:59 | Day surgery (SDC) | payer MEDICARE, SELFPAY ==
--- NOTE | 2023-05-22 08:15 | W.PN.UPDATE ---
Update Note
Progress Note Update
Mr. Peralta presented in sinus rhythm today after completing his amiodarone loading and feels well without dyspnea on exertion. We will lower his amiodarone to 200 mg daily as he has some resting bradycardia which is asymptomatic and he will follow-up
with me in the office in 4 to 5 months. He understands to call with new fatigue, dyspnea on exertion, edema or concerning symptoms.
== END ==
LOC: CATH 06:59
PROVIDERS: ATTENDING PHYSICIAN Internal Medicine Cardiovascular Disease
DX: I48.0 Paroxysmal atrial fibrillation (principal); Z53.09 Procedure and treatment not carried out because of other contraindication; I49.3 Ventricular premature depolarization; I48.3 Typical atrial flutter; I25.10 Atherosclerotic heart disease of native coronary artery without angina pectoris; I10 Essential (primary) hypertension; E78.00 Pure hypercholesterolemia, unspecified; G47.33 Obstructive sleep apnea (adult) (pediatric); Z87.891 Personal history of nicotine dependence; Z79.82 Long term (current) use of aspirin; Z79.84 Long term (current) use of oral hypoglycemic drugs
CPT/HCPCS: 93005

== ENCOUNTER 2024-10-11 15:00 | Emergency (ER) | payer MEDICARE, SELFPAY ==
[2024-10-11 15:09] VITALS: BP 141/54
--- NOTE | 2024-10-11 17:14 | ED.GENMED ---
History of Present Illness
General
Chief Complaint: Fall
Source: patient
Exam Limitations: none
Time Seen by Provider: 10/11/24 16:20
Nursing documentation reviewed up to this point in time: agreed with
History of Present Illness
History of Present Illness:
79-year male slip and fall doing some yard work struck his head on the ground, has pain in his right hand with swelling at his thumb no headache no neck pain no paresthesias no weakness, does have A-fib is on blood thinners, states pain is mild
asking for some Naprosyn, has not seen a orthopedist in years he had a meniscus repair years ago in his right knee he is unsure of the surgeon had no preceding chest pain or shortness of breath
Phy Exam
Physical Exam
Physical Exam:
Physical Exam
General: Abrasion over the right scalp, no posterior neck pain, no tongue bite
Neck: Midline trachea
Heart: Regular
Lungs: no acute respiratory distress. No wheezing crepitus
Abdomen: Nontender
Neuro: alert and oriented. no focal neurological deficits
Skin: no rash
Psychiatric: well kept. interactive and cooperative
Extremities: Edema swelling pain at the base of thumb IP joint of the right
Course
Orders/Labs/Results
Orders:
Orders
10/11/24 15:08
CT Head W/o Iv Contrast Urgent
Comment:
Reason For Exam: fall
CR Finger(s)/thumb Min 2 Vw Rt Urgent
Comment:
Reason For Exam: fall
CR Hand - Right 2 Views Urgent
Comment:
Reason For Exam: fall
10/11/24 16:51
Splints/Slings/Crut- Treatment ONCE
10/11/24 17:01
Acetaminophen [Tylenol] 650 mg PO NOW STA
Vital Signs
Initial and Last Documented VS:
Initial Vital Signs
Temp Pulse Resp BP Pulse Ox
97.9 F 61 16 141/54 97
10/11/24 15:09 10/11/24 15:09 10/11/24 15:09 10/11/24 15:09 10/11/24 15:09
Last Documented Vital Signs
Temp Pulse Resp BP Pulse Ox
97.9 F 61 16 141/54 97
10/11/24 15:09 10/11/24 15:09 10/11/24 15:09 10/11/24 15:09 10/11/24 17:15
MDM/Problems Addressed
Differential Diagnosis Includes:
Slip and fall, normal mental status, no preceding chest pain or shortness of breath, no intracerebral hemorrhage on CT scan positive thumb base fracture
MDM/Problems Addressed:
Fall thumb pain
Chronic conditions affecting care: Arrhythmia
Acute Exacerbation and/or Progression of Chronic Illness: Arrhythmia
*Radiology
Radiology exam reviewed: radiology read reviewed
*Pulse Oximetry
SaO2: 97
Oxygen Mode of Delivery: Room air
Patient hypoxic: no
*Critical Care Note
Total Time (30-74mins, 75-104mins- exclusive of procedures): Not Applicable
Update Note
Update Note:
Update, CT head negative for fracture or bleed, no posterior neck pain is not intoxicated thumb, looks to be fractured, will mobilize have him follow-up with orthopedics, no NSAIDs due to being on a blood thinner Rx for oxycodone sent to his
requested pharmacy
ED Attending Note
-
Portions of this chart may have been created with voice recognition software.� Occasional wrong word or��sound alike� substitutions may have occurred due to the inherent limitations of voice recognition software.
Discharge Plan
Departure
Patient Disposition: Home (Routine Discharge)
Date of Disposition: 10/11/24
Time of Disposition: 17:01
Patient with high blood pressure during this ER visit?: No
Condition: Good
Discharge Problem:
Fracture of thumb, Head injury
Instructions: Wound Care (DC), Head Injury in Adults (DC), Preventing falls in adults, Skin Abrasions (DC), Hand Fracture ED
Prescriptions:
New
oxycodone 5 mg tablet
5 mg PO Q6H PRN (Reason: Pain) Qty: 14 0RF
No Action
metoprolol succinate 50 mg Tablet Extended Release 24 Hr
50 mg PO BID
ascorbic acid (vitamin C) [Vitamin C] 500 mg Tablet
500 mg PO BID
omeprazole 20 mg Capsule,Delayed Release(Dr/Ec)
20 mg PO DAILY PRN (Reason: gi issues)
vitamin B complex Capsule
1 cap PO DAILY
Eliquis 5 mg Tablet
5 mg PO BID
ferrous sulfate [Iron (ferrous sulfate)] 325 mg (65 mg iron) Tablet
325 mg PO BID
amiodarone [Pacerone] 200 mg Tablet
200 mg PO BID Qty: 60 0RF
Rx Instructions:
twice daily x 30 days, then once daily
ramipril 2.5 mg Capsule
2.5 mg PO DAILY Qty: 30 0RF
dapagliflozin propanediol [Farxiga] 10 mg Tablet
10 mg PO DAILY Qty: 30 0RF
tamsulosin 0.4 mg Capsule
0.4 mg PO BID Qty: 60 0RF
finasteride 5 mg Tablet
5 mg PO DAILY Qty: 30 0RF
ethacrynic acid [Edecrin] 25 mg tablet
25 mg PO DAILY Qty: 30 5RF
atorvastatin 10 mg Tablet
10 mg PO DAILY Qty: 30 1RF
Referrals:
Jose Zurita MD [Active, Orthopedics] - Next open appointment
Kathie Zarco DO [Family Provider, Family Practice]
Activity Restrictions/Additional Instructions:
Use splint
Tylenol or oxycodone every 4-6 hours for pain
Follow-up with [facility] orthopedics-call Nazanin morning for follow-up appointment
Interventions
Interventions:
*Risk Screen - Suicide Last Done: 10/11/24 15:09
*Neglect/Abuse Screening Last Done: 10/11/24 15:09
Discharge Date and Time
Print Language: MONGOLIAN
[2024-10-11] MEDS: TYLENOL 650 MG PO (17:20)
[2024-10-11 19:25] VITALS: BP 165/79
== END 2024-10-11 17:15 | disposition home or self-care (01) ==
LOC: EMR 15:00
PROVIDERS: EMERGENCY PHYSICIAN Emergency Medicine; FAMILY PHYSICIAN Family Medicine
DX: S62.511A Displaced fracture of proximal phalanx of right thumb, initial encounter for closed fracture (principal); I48.91 Unspecified atrial fibrillation; Z79.01 Long term (current) use of anticoagulants; W01.198A Fall on same level from slipping, tripping and stumbling with subsequent striking against other object, initial encounter; X50.9XXA Other and unspecified overexertion or strenuous movements or postures, initial encounter; Y93.H2 Activity, gardening and landscaping; Y92.007 Garden or yard of unspecified non-institutional (private) residence as the place of occurrence of the external cause
CPT/HCPCS: 99284; 70450; 73120; 73140

== ENCOUNTER 2024-12-02 07:40 | Inpatient (IN) | payer MEDICARE, SELFPAY ==
[2024-11-16 13:45] VITALS: BMI 28.5
[2024-11-16 14:27] LABS: Hematocrit 32.4 % (39.0-52.0); Hemoglobin 10.9 g/dL (13.0-18.0); Mean Corp Hgb Conc. 33.6 g/dL (33.0-37.0); Mean Corpuscular Volume 91.3 fL (80.0-94.0); Platelet Count 294 10^3/uL (130-400); Red Cell Dist. Width 16.8 % (11.5-14.5)
[2024-11-16 14:50] LABS: Glycohemoglobin (HgbA1c) 5.6 % (4.0-5.6)
[2024-11-16 14:53] LABS: ALT (SGPT) 21 U/L (0-50); AST (SGOT) 21 U/L (17-59); Albumin 3.6 g/dl (3.5-5.0); Alkaline Phosphatase 115 U/L (38-126); Blood Urea Nitrogen 22 mg/dl (9-20); Calcium 7.6 mg/dl (8.4-10.2); Carbon Dioxide 29 mmol/L (22-30); Chloride 106 mmol/L (98-107); Estimated Creatinine Clearance 53 ml/min; Glucose 166 mg/dl (70-99); Potassium 4.2 mmol/L (3.5-5.1); Sodium 139 mmol/L (135-145); Total Protein 5.4 g/dl (6.3-8.2); eGFR > 60.00
[2024-11-16 15:47] VITALS: BMI 28.5
--- NOTE | 2024-11-23 10:10 | CM ---
Demographics: confirmed
Living situation: [facility]
Support Person Post Operatively: Daughter, Rashmi
VN: No
SNF: No
Outpatient: no
Has patient purchased required equipment: has a walker
PCP: Kyle
Pharmacy: [facility], [facility]
Post Operative Discharge Plan: Patient is requesting home RN,PT, OT at [facility].
[2024-12-02] VITALS (14 sets, daily range): BP systolic 118–153; BP diastolic 53–68; PULSE 59; BMI 28.5; BMI 27.5
--- NOTE | 2024-12-02 07:53 | W.PN.UPDATE ---
Addendum entered and electronically signed by Shirley Montelongo PA-C 12/04/24 09:44:
Eliquis home dosing will be resumed on POST-OP day 3 if stable.
Original Note:
Update Note
Progress Note Update
R knee OA s/p R TKA w/ Dr Condon 12/02/24
DVT prophylaxis - Eliquis at modified dosing, b/l venous foot pumps
- Eliquis 5 mg PO BID dosing to be resumed POD 1 if hemodynamically stable
HTN - + parameters - monitor BP
PVCs, asymptomatic
PAF/typical A flutter, status post PVI and CTI flutter ablation, 03/2022, redo ablation 02/2023, and CV x3
Sinus bradycardia
CAD, status post PCI of OM1 and circumflex 2002
- Monitor on tele
- Continue Amiodarone and Metoprolol
- Eliquis as stated above
Tachycardia-induced cardiomyopathy, reduced ejection fraction - reduce hourly IVF to prevent fluid overload
- Resume Edecrin w/ SBP parameters to minimize post-surgical hypotension
- Monitor daily weights, I&Os
JESÚS per records, no current device - monitor O2
- IS
- Add supplemental O2 HS
- Consider Decadron to aid in lung perfusion
GERD - continue PPI therapy
Sciatica - add Gabapentin HS
BPH with urinary retention, on Flomax and Finasteride - monitor voids
- Continue home meds
- Bladder scan/straight cath prn
Iron deficiency anemia, on oral supplementation - H&H in AM
- Continue PO supplement for now. Consider IV iron while admitted
Mild hypocalcemia, asymptomatic - advised to start PO Calcium supplement pre-op
- Will reassess Calcium w/ BMP in AM
Hypercholesterolemia
Left ventricular hypertrophy
Mild to moderate valvular disease
Diverticulosis
Cholelithiasis, asymptomatic
Splenomegaly
Probable remote hepatitis A history
Degenerative disc disease
Right thumb closed displaced fracture, 10/11/2024, treated conservatively by ortho
Mild leukopenia
Remote history of tobacco abuse
[2024-12-02] MEDS: TYLENOL 650 MG PO ×4 (08:15→23:27)
[2024-12-02] MEDS: MOBIC 15 MG PO (08:16)
[2024-12-02] MEDS: NORMOSOL-R/PLASMALYTE-A 1000 IV ×2 (08:25→14:33)
[2024-12-02] MEDS: ROXICODONE 5 MG PO (11:23)
[2024-12-02] MEDS: DILAUDID 0.25 MG IV (12:31)
--- NOTE | 2024-12-02 13:34 | PTCARENOTE ---
Received patient from PACU around 1330 via bed in stable condition. Dress to right knee cdi. PT at bedside to work with patient. Patient oriented to room. Call prince in reach.
[2024-12-02] MEDS: EDECRIN 25 MG PO (14:36)
[2024-12-02] MEDS: PROTONIX 20 MG PO (14:41)
[2024-12-02] MEDS: FARXIGA 10 MG PO (14:41)
[2024-12-02] MEDS: VITAMIN C 500 MG PO (14:41)
[2024-12-02] MEDS: PROSCAR 5 MG PO (14:41)
[2024-12-02] MEDS: LIPITOR 10 MG PO (14:41)
[2024-12-02] MEDS: ANCEF 5 IV ×2 (15:46→23:26)
[2024-12-02] MEDS: BACTROBAN 2% OINTMENT 1 APPLIC NASAL (20:02)
[2024-12-02] MEDS: SENOKOT 17.2 MG PO (20:03)
[2024-12-02] MEDS: FEOSOL 325 MG PO (20:03)
[2024-12-02] MEDS: FLOMAX 0.4 MG PO (20:03)
[2024-12-02] MEDS: ELIQUIS 2.5 MG PO (20:03)
[2024-12-02] MEDS: COLACE 100 MG PO (20:03)
[2024-12-02] MEDS: TOPROL XL 50 MG PO (20:04)
[2024-12-02] MEDS: NEURONTIN 300 MG PO (21:31)
[2024-12-03] VITALS (7 sets, daily range): BP systolic 117–143; BP diastolic 50–87; PULSE 60–70; O2SAT 97; BMI 27.7
[2024-12-03] MEDS: ROXICODONE 10 MG PO (02:37)
[2024-12-03] MEDS: TYLENOL 650 MG PO ×2 (04:33→08:43)
[2024-12-03 06:16] LABS: Hematocrit 28.5 % (39.0-52.0); Hemoglobin 9.7 g/dL (13.0-18.0)
[2024-12-03 06:43] LABS: Blood Urea Nitrogen 26 mg/dl (9-20); Calcium 7.8 mg/dl (8.4-10.2); Carbon Dioxide 24 mmol/L (22-30); Chloride 102 mmol/L (98-107); Estimated Creatinine Clearance 53 ml/min; Glucose 136 mg/dl (70-99); Potassium 4.8 mmol/L (3.5-5.1); Sodium 134 mmol/L (135-145); eGFR > 60.00
--- NOTE | 2024-12-03 07:52 | W.PN.UPDATE ---
Update Note
Progress Note Update
pt sound asleep, I left him sleeping rather than wake him up on rounds
--- NOTE | 2024-12-03 08:37 | W.PN.ORTHO ---
Today's Communication / Plan
-
Adjust pain meds to avoid excessive lightheadedness.
Await further PT and OT recs.
D/c later today if remaining clinically stable.
Assessment
.
Distal Motor Intact: Yes
Dressing:
Quarter size area of incisional bleeding towards superior portion of dressing.
Assessment:
R knee OA s/p R TKA w/ Dr Condon 12/02/24
DVT prophylaxis - Eliquis at modified dosing, b/l venous foot pumps
- Eliquis 5 mg PO BID dosing to be resumed POD 3 since hemodynamically stable
Pain control - given lightheadedness was reported w/ 10 mg dosing of Oxycodone, will advise using 5 mg q6hprn for mod-severe pain
- Will add Lidocaine patches and Decadron BID x3 days to help w/ pain relief and minimize narcotic use overall
- Continue to monitor pain during admission and adjust meds further if needed
HTN - + parameters - BPs stable overall
PVCs, asymptomatic
PAF/typical A flutter, status post PVI and CTI flutter ablation, 03/2022, redo ablation 02/2023, and CV x3
Sinus bradycardia
CAD, status post PCI of OM1 and circumflex 2002
- Maintaining NSR on tele
- Continue Amiodarone and Metoprolol
- Eliquis as stated above
Tachycardia-induced cardiomyopathy, reduced ejection fraction - reduced hourly IVF to prevent fluid overload
- Resumed Edecrin w/ SBP parameters to minimize post-surgical hypotension
- Daily weights, I&Os overall stable
JESÚS per records, no current device - O2 stable on RA
- IS
- Added supplemental O2 HS
- Add Decadron today to aid in lung perfusion
GERD - continue PPI therapy
Sciatica - added Gabapentin HS
BPH with urinary retention, on Flomax and Finasteride - voiding appropriately by POD 1 w/ measures below
- Continue home meds
- Bladder scan/straight cath prn
Iron deficiency anemia, on oral supplementation - Hgb pre-op 10.9 -> POD 9.7
- Asymptomatic, hemodynamically stable
- Continue PO supplement BID for now
- CBC outpt w/ results to PCP for further anemia management
Mild hypocalcemia, asymptomatic - advised to start PO Calcium supplement pre-op
- Ca POD 1 mildly improved. Will advise increasing supplement to BID dosing
- Can f/u w/ PCP re: this
Hypercholesterolemia
Left ventricular hypertrophy
Mild to moderate valvular disease
Diverticulosis
Cholelithiasis, asymptomatic
Splenomegaly
Probable remote hepatitis A history
Degenerative disc disease
Right thumb closed displaced fracture, 10/11/2024, treated conservatively by ortho
Mild leukopenia
Remote history of tobacco abuse
Plan
.
Surgery / Date: R TKA w/ Dr Condon 12/02/24
DVT Prophylaxis: Other (Eliquis )
Activity:
Out of bed.
PT/OT
Discharge Plan: Other (Home w/ PT/OT/VN through [facility] )
Subjective
.
.:
Patient examined resting in bed.
Reports lightheadedness, feeling 'woozy' w/ 10 mg of Oxycodone overnight. Reportedly OK w/ 5 mg earlier in day.
Denies any other new significant complaints.
Eager for potential d/c today.
Vital Signs and Labs
.
Vital Signs and Labs:
Lab Results
12/03/24 05:19
12/03/24 05:19
Temp Pulse Resp BP Pulse Ox
98.9 F 71 18 127/56 92
12/03/24 07:00 12/03/24 07:00 12/03/24 07:00 12/03/24 07:00 12/03/24 07:00
Physical Exam
-
HEENT: No pallor, cyanosis, or jaundice. Throat clear.
NECK: Supple. No JVD.
RESPIRATORY: Lungs clear to auscultation.
CVS: S1, S2 normal. RRR.�
ABDOMEN: Soft, non-tender. No distension.
EXTREMITIES: Expected post-surgical R knee edema. Strength equal, no calf pain with palpation/dorsiflexion. Calves soft.
WOOD COATER: AOx3. No focal deficits. employment appeals examiner grossly intact
[2024-12-03] MEDS: FARXIGA 10 MG PO (08:43)
[2024-12-03] MEDS: OSCAL CAL 500 500 MG PO (08:45)
[2024-12-03] MEDS: ELIQUIS 2.5 MG PO (08:45)
[2024-12-03] MEDS: SENOKOT 17.2 MG PO (08:45)
[2024-12-03] MEDS: EDECRIN 25 MG PO (08:45)
[2024-12-03] MEDS: PROTONIX 20 MG PO (08:46)
[2024-12-03] MEDS: COLACE 100 MG PO (08:46)
[2024-12-03] MEDS: PACERONE 200 MG PO (08:46)
[2024-12-03] MEDS: TOPROL XL 50 MG PO (08:46)
[2024-12-03] MEDS: LIPITOR 10 MG PO (08:46)
[2024-12-03] MEDS: FEOSOL 325 MG PO (08:46)
[2024-12-03] MEDS: VITAMIN C 500 MG PO (08:46)
[2024-12-03] MEDS: FLOMAX 0.4 MG PO (08:46)
[2024-12-03] MEDS: ROXICODONE 5 MG PO (08:46)
[2024-12-03] MEDS: PROSCAR 5 MG PO (08:47)
[2024-12-03] MEDS: DECADRON 4 MG PO (08:47)
[2024-12-03] MEDS: BACTROBAN 2% OINTMENT 1 APPLIC NASAL (08:47)
[2024-12-03] MEDS: LIDOCAINE 4% PATCH 2 PATCH TOPICAL (08:47)
--- NOTE | 2024-12-03 08:56 | W.DS.TRANS ---
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
-
Discharge Instructions:
Sleep Apnea Risk Intermediate
Discharge Diagnosis/Procedures R knee OA s/p R TKA w/ Dr Condon 12/02/2024
Diet Other diet
Additional Diets Diabetic carb controlled diet x1 week for wound
healing/infection prevention.
Adequate hydration, minimize opioids, and wear
TEDs stockings to prevent low blood pressure/
dizziness.
Activity As tolerated,With Walker
Driving Restrictions Not until seen by your Dr
Bathing Restrictions OK to Shower
Blood Work CBC w/o diff and BMP (ATTN: Hemoglobin and
Calcium) with results to PCP for further medical
management.
Other Services PT,OT
Wound Care Dressing to be removed 1 week post-surgery.
Specialty Instructions Weigh Daily
Instructions:
Stand-Alone Forms: Total Hip/Knee Replacement D/C
Changes to Home Medications: Yes
Discharge Medications:
DC Medications w/original date entered in [employer]
apixaban 5 mg tablet (Eliquis) 5 mg PO BID Blood Clot Prevention/Tx 03/14/22
Held on 12/03/24. Instructions: Resume on 12/05/24.
ascorbic acid (vitamin C) 500 mg tablet (Vitamin C) 500 mg PO DAILY Supplement 03/14/22
metoprolol succinate 50 mg tablet,extended release 24 hr 50 mg PO BID Heart Disease/Condition 03/14/22
omeprazole 20 mg capsule,delayed release 20 mg PO DAILY gi issues 03/14/22
vitamin B complex 1 cap PO DAILY Supplement 03/14/22
ferrous sulfate 325 mg (65 mg iron) tablet (Iron (ferrous sulfate)) 325 mg PO BID Supplement 02/21/23
atorvastatin 10 mg tablet 10 mg PO DAILY High Cholesterol #30 tabs 04/18/23
dapagliflozin propanediol 10 mg tablet (Farxiga) 10 mg PO DAILY #30 tabs 04/18/23
finasteride 5 mg tablet 5 mg PO DAILY #30 tabs 04/18/23
mupirocin 2 % topical ointment 1 applic intranasal BID #1 tube 11/16/24
famotidine 20 mg tablet (Pepcid) 20 mg PO HS #30 tabs 11/20/24
gabapentin 300 mg capsule 300 mg PO HS neuropathic pain/sleep #10 caps 11/20/24
ondansetron HCl 4 mg tablet 4 mg PO Q6H PRN nausea and vomiting #30 tabs 11/20/24
acetaminophen 500 mg tablet (Tylenol Extra Strength) 1,000 mg (2 x 500 mg) PO Q6H #30 tabs 12/03/24
amiodarone 200 mg tablet (Pacerone) 200 mg PO DAILY #1 tab 12/03/24
apixaban 2.5 mg tablet (Eliquis) 2.5 mg PO BID #3 tabs 12/03/24
calcium carbonate 500 mg PO BID hypocalcemia #30 tabs 12/03/24
dexamethasone 4 mg tablet 4 mg PO BID Anti-inflammatory #7 tabs 12/03/24
docusate sodium 100 mg capsule 100 mg PO BID #30 caps 12/03/24
ethacrynic acid 25 mg tablet (Edecrin) 25 mg PO DAILY #30 tabs 12/03/24
lidocaine 4 % topical patch 2 patch topical DAILY #30 ea 12/03/24
magnesium hydroxide 400 mg/5 mL oral suspension (Milk of Magnesia) 30 ml PO HS PRN constipation #3,780 mL 12/03/24
oxycodone 5 mg tablet 5 mg PO Q6H PRN moderate-severe pain #30 tabs 12/03/24
ramipril 2.5 mg capsule 2.5 mg PO BID #1 cap 12/03/24
sennosides 8.6 mg tablet (Samira-tracey) 17.2 mg (2 x 8.6 mg) PO BID #30 tabs 12/03/24
tamsulosin 0.4 mg capsule 0.4 mg PO BID #60 caps 12/03/24
Home Medication Changes
famotidine 20 mg tablet (Pepcid) 20 mg PO HS #30 tabs 11/20/24
gabapentin 300 mg capsule 300 mg PO HS neuropathic pain/sleep #10 caps 11/20/24
ondansetron HCl 4 mg tablet 4 mg PO Q6H PRN nausea and vomiting #30 tabs 11/20/24
acetaminophen 500 mg tablet (Tylenol Extra Strength) 1,000 mg (2 x 500 mg) PO Q6H #30 tabs 12/03/24
apixaban 2.5 mg tablet (Eliquis) 2.5 mg PO BID #3 tabs 12/03/24 - until POD 3
calcium carbonate 500 mg PO BID hypocalcemia #30 tabs 12/03/24
dexamethasone 4 mg tablet 4 mg PO BID Anti-inflammatory #7 tabs 12/03/24
docusate sodium 100 mg capsule 100 mg PO BID #30 caps 12/03/24
lidocaine 4 % topical patch 2 patch topical DAILY #30 ea 12/03/24
magnesium hydroxide 400 mg/5 mL oral suspension (Milk of Magnesia) 30 ml PO HS PRN constipation #3,780 mL 12/03/24
sennosides 8.6 mg tablet (Samira-tracey) 17.2 mg (2 x 8.6 mg) PO BID #30 tabs 12/03/24
Oxycodone switched to Tramadol 50 mg, 1-2 tabs PO q6hprn #30
Pending Results: No
--- NOTE | 2024-12-03 09:43 | CM ---
CM reviewed medical records. Patient referred to [facility]. CM faxed referral. CM awaiting call back for acceptance. Patient is agreeable to plan.
PLAN: Home VN [facility].
--- NOTE | 2024-12-03 15:44 | W.PN.UPDATE ---
Update Note
Progress Note Update
Pt continued to have unsteadiness after 5 mg Oxycodone given this AM. Was unable to work w/ PT and OT at that time.
Oxycodone was d/c altogether and added to his adverse drug reaction list.
Tramadol was prescribed instead. He is aware to use sparingly and only for significant pain as needed.
The patient was finally able to work w/ both PT and OT this afternoon and did well.
Given his stability, he can be d/c today.
== END 2024-12-03 17:45 | disposition home health service (06) | DRG 470 ==
LOC: 2 SOUTH 07:40
PROVIDERS: Physician Assistant; ADMITTING PHYSICIAN Orthopaedic Surgery; FAMILY PHYSICIAN Internal Medicine Geriatric Medicine; REFERRING PHYSICIAN Internal Medicine Cardiovascular Disease
PROC: 0SRC069 Replacement of Right Knee Joint with Oxidized Zirconium on Polyethylene Synthetic Substitute, Cemented, Open Approach (ICD-10-PCS; 2024-12-02)
DX: M17.11 Unilateral primary osteoarthritis, right knee (principal); I48.3 Typical atrial flutter; I42.8 Other cardiomyopathies; Z87.891 Personal history of nicotine dependence; I48.0 Paroxysmal atrial fibrillation; D50.9 Iron deficiency anemia, unspecified; E83.51 Hypocalcemia; N40.1 Benign prostatic hyperplasia with lower urinary tract symptoms; I11.9 Hypertensive heart disease without heart failure; I49.3 Ventricular premature depolarization; G47.33 Obstructive sleep apnea (adult) (pediatric); K21.9 Gastro-esophageal reflux disease without esophagitis; M54.30 Sciatica, unspecified side; R33.8 Other retention of urine
CPT/HCPCS: 36415; 73560; 80048; 80053; 83036; 85014; 85018; 85027; 86850; 86900; 86901; 87070; 97110; 97116; 97162; 97167; 97530; 97535; C1713; C1776

== ENCOUNTER 2024-12-11 23:41 | Inpatient (IN) | payer MEDICARE, SELFPAY ==
[2024-12-11] VITALS (7 sets, daily range): BP systolic 116–145; BP diastolic 50–59
[2024-12-11 16:54] LABS: Hematocrit 27.6 % (39.0-52.0); Hemoglobin 8.9 g/dL (13.0-18.0); Mean Corp Hgb Conc. 32.2 g/dL (33.0-37.0); Mean Corpuscular Volume 90.8 fL (80.0-94.0); Platelet Count 401 10^3/uL (130-400); Red Cell Dist. Width 17.1 % (11.5-14.5)
[2024-12-11 17:03] LABS: ALT (SGPT) 17 U/L (0-50); AST (SGOT) 13 U/L (17-59); Albumin 3.2 g/dl (3.5-5.0); Alkaline Phosphatase 93 U/L (38-126); Blood Urea Nitrogen 39 mg/dl (9-20); Calcium 7.6 mg/dl (8.4-10.2); Carbon Dioxide 26 mmol/L (22-30); Chloride 99 mmol/L (98-107); Glucose 268 mg/dl (70-99); Potassium 4.4 mmol/L (3.5-5.1); Sodium 131 mmol/L (135-145); Total Protein 4.8 g/dl (6.3-8.2); eGFR > 60.00
[2024-12-11 18:09] LABS: Nucleated Red Blood Cells % 0.2 % (-)
[2024-12-11 18:44] LABS: Urine Character Clear (Clear)
[2024-12-11 18:55] LABS: Urine Red Blood Cell 0-2 /HPF (0-2); Urine Squamous Cell 0-2 /LPF (Few); Urine Urothelial Cell 0-2 /LPF (FEW); Urine White Cell 0-2 /HPF (0-5)
[2024-12-11] MEDS: TYLENOL 1000 MG PO (21:41)
--- NOTE | 2024-12-11 22:54 | ED.GENMED ---
History of Present Illness
General
Chief Complaint: Flank Pain
Source: patient
Time Seen by Provider: 12/11/24 19:20
History of Present Illness
History of Present Illness:
Note:
CHIEF COMPLAINT(S)
Weakness and flank pain following knee surgery.
HISTORY OF PRESENT ILLNESS
The patient is an 79-year-old male who underwent right knee surgery approximately two weeks ago. He reports that a week following his surgery, he began to feel generally unwell and weak. He also describes experiencing flank pain, which he attributes
possibly to staying in one position for extended periods. He reports feeling particularly weak, which has impaired his usual levels of activity. Additionally, he noted a change in urine color, describing it as darker than usual. He denies any fever.
Upon examination, his surgical wound was found to be intact with some serosanguinous drainage but no signs of infection such as red, purulent drainage. The patient also confirms no significant fever. He has been trying to remain active, by walking
to the bathroom, albeit with some difficulty due to the post-surgical weakness.
PAST SURGICAL HISTORY
Right knee surgery performed two weeks prior.
REVIEW OF SYSTEMS
- Musculoskeletal: Weakness following knee surgery.
- Urinary: Dark-colored urine noted.
- General: Reports feeling generally unwell and weak post-operatively.
PHYSICAL EXAM
General: Alert, no acute distress.
Skin: Warm, dry.
Head: Normocephalic, atraumatic.
Neck: Supple, trachea midline.
Eye Ears, nose, mouth and throat: Oral mucosa moist.
Cardiovascular: Normal peripheral perfusion, No edema.
Respiratory: Respirations are non-labored.
Gastrointestinal : Abdomen nondistended.
Back: Flank pain reported, possibly positional.
Musculoskeletal: Weakness post knee surgery, limited activity.
Neurological: Alert and oriented to person, place, time, and situation, No focal neurological deficit observed.
Psychiatric: Cooperative, appropriate mood & affect.
PLAN
- Urinalysis to investigate dark-colored urine.
- Imaging of the abdomen and pelvis to assess kidney function and rule out intra-abdominal issues.
- Evaluate urine studies.
- Monitor wound healing and drainage for signs of infection.
- Continue to encourage gentle mobilization and activity as tolerated.
DIFFERENTIAL DIAGNOSIS
The Differential Diagnosis includes, in no particular order and is not limited to:
- Post-surgical weakness
- Urinary tract infection
- Renal calculi
- Muscle strain from positioning
- Reaction to surgery or medication
- Renal dysfunction
- Dehydration
- Anemia
- Infection at surgical site
- Vascular issues (e.g., DVT)
Disposition:
SUMMARY OF ENCOUNTER
The patient is an 79-year-old male who presented to the emergency department with weakness and fatigue following a recent right knee replacement. While on anticoagulation therapy with apixaban, he was found to have progressive anemia, likely related
to blood loss. His hemoglobin level was recorded at 8.9 g/dL, which is a decline from a previous level of 10.9 g/dL on November 16. Chemistry findings indicated mild volume depletion with a hematocrit of 39% over 1.2, and an elevated glucose level
of 268 mg/dL. His calcium level was also low at 7.6 mg/dL. A CT scan revealed a psoas hematoma, raising concerns for retroperitoneal hemorrhage. Despite the patients hematological stability, his symptoms, decreasing hemoglobin, and use of apixaban,
coupled with imaging findings, necessitate hospital admission for close observation and to monitor hemoglobin levels. There was no evidence of infection, and his surgical wound appeared to be healing well. His white blood cell count was normal.
DISPOSITION
Admit
ASSESSMENT
Probable psoas hematoma with retroperitoneal hemorrhage related to anticoagulation therapy in the context of recent surgery and anemia.
PLAN
Admit the patient to the hospital for close monitoring. Trend the patients hemoglobin levels to assess the progression of anemia and evaluate the need for potential intervention. Continue to monitor for any further signs of bleeding or hemodynamic
instability. Reassess fluid status and correct electrolyte imbalances, particularly addressing the elevated glucose and low calcium levels.
INDEPENDENT REVIEW OF LABS AND INTERPRETATION OF TESTS
- My independent review of the CBC indicates a hemoglobin level of 8.9 g/dL and a normal white blood cell count.
- My independent review of chemistry tests reveals a glucose level of 268 mg/dL and a calcium level of 7.6 mg/dL, indicating low calcium.
MEDICAL DECISION MAKING
- Number and Complexity of Problems Addressed: Chronic conditions affecting care include the patients anticoagulation therapy and surgical history. The differential diagnosis includes post-surgical weakness, renal dysfunction, dehydration, anemia,
vascular issues (e.g., DVT), and infection at the surgical site.
- Data:
- Category 1: Reviewed lab tests, including CBC and chemistry panel. Imaging studies included a CT scan, revealing a psoas hematoma.
- Category 2: My independent interpretation of the CT scan confirms a psoas hematoma with concern for retroperitoneal hemorrhage.
- Risk: Prescription drug management with apixaban and its associated risks of bleeding. Decisions regarding diagnostic testing with the risk of further imaging were considered.
DIAGNOSIS
1. Psoas hematoma (ICD-10: M62.838)
2. Anemia due to blood loss (ICD-10: D50.9)
3. Hypocalcemia (ICD-10: E83.51)
4. Hyperglycemia (ICD-10: R73.9)
Phy Exam
Physical Exam
Physical Exam:
.
Course
Orders/Labs/Results
Orders:
Orders
12/11/24 16:34
Complete Blood Count/With Diff Urgent
Comprehensive Metabolic Panel Urgent
Magnesium Urgent
Comment: ADD ON
12/11/24 18:29
Urinalysis Reflex To Culture Urgent
Date Specimen was Collected: 12/11/24
Time Specimen was Collected: 18:11
Urine Microscopic Reflex Cult Urgent
Urine Culture Urgent
PAM Source: U
Specimen Description:
Date Specimen was Collected: 12/11/24
Time Specimen was Collected: 18:11
12/11/24 19:28
CT Abd/pel Without Iv Or Oral Urgent
Comment:
Reason For Exam: R flank pain
12/11/24 21:38
Acetaminophen [Tylenol] 1,000 mg PO NOW STA
12/11/24 22:59
Prothrombin Time Urgent
12/11/24 23:00
0.9% Sodium Chloride 500 ml [Nss] 500 ml IV BOLUS
12/11/24 23:01
Add On- LAB Urgent
Tests Added?: Mg
Abnormal Lab Results
12/11/24 12/11/24
16:34 18:29
RBC 3.04 L 10^6/uL
(4.70-6.10)
Hgb 8.9 L g/dL
(13.0-18.0)
Hct 27.6 L %
(39.0-52.0)
MCHC 32.2 L g/dL
(33.0-37.0)
RDW 17.1 H %
(11.5-14.5)
Plt Count 401 H 10^3/uL
(130-400)
MPV 10.5 H fL
(7.4-10.4)
Abs Immat Gran (auto) 0.6 H 10^3/uL
(0-0.05)
Absolute Neuts (auto) 7.7 H 10^3/uL
(1.4-6.5)
Absolute Lymphs (auto) 0.9 L 10^3/uL
(1.2-3.4)
Absolute Monos (auto) 1.2 H 10^3/uL
(0.1-0.6)
Immature Gran % 5.4 H %
(0-0.5)
Lymphocytes % 8.3 L %
(20.5-51.1)
Monocytes % 11.5 H %
(1.7-9.3)
Sodium 131 L mmol/L
(135-145)
BUN 39 H mg/dl
(9-20)
Glucose 268 H mg/dl
(70-99)
Calcium 7.6 L mg/dl
(8.4-10.2)
Total Bilirubin 1.5 H mg/dl
(0.2-1.3)
AST 13 L U/L
(17-59)
Total Protein 4.8 L g/dl
(6.3-8.2)
Albumin 3.2 L g/dl
(3.5-5.0)
Urine Bacteria (Reflex) Moderate A
(Negative)
Urine Glucose 4+ A
(Negative)
Urine Albumin (Reflex) 1+ A
(Neg - Trace)
12/11/24 16:34
12/11/24 16:34
Vital Signs
Initial and Last Documented VS:
Initial Vital Signs
Temp Pulse Resp BP Pulse Ox
98.3 F 70 16 116/50 98
12/11/24 16:28 12/11/24 16:28 12/11/24 16:28 12/11/24 16:28 12/11/24 16:28
Last Documented Vital Signs
Temp Pulse Resp BP Pulse Ox
98.3 F 71 17 145/57 97
12/11/24 16:28 12/11/24 22:51 12/11/24 22:51 12/11/24 22:00 12/11/24 22:54
*Pulse Oximetry
SaO2: 97
Oxygen Mode of Delivery: Room air
Patient hypoxic: no
*Critical Care Note
Total Time (30-74mins, 75-104mins- exclusive of procedures): Not Applicable
ED Attending Note
-
Portions of this chart may have been created with voice recognition software.� Occasional wrong word or��sound alike� substitutions may have occurred due to the inherent limitations of voice recognition software.
Discharge Plan
Departure
Patient Disposition: Admit
Date of Disposition: 12/11/24
Time of Disposition: 23:09
Admit to: Telemetry
Presentation/result/management discussed w/ accepting MD/DO: Hospitalist
Discharge Problem:
Nontraumatic psoas hematoma, Acute hyperglycemia, Anemia
Prescriptions:
No Action
metoprolol succinate 50 mg Tablet Extended Release 24 Hr
50 mg PO BID
ascorbic acid (vitamin C) [Vitamin C] 500 mg Tablet
500 mg PO DAILY
omeprazole 20 mg Capsule,Delayed Release(Dr/Ec)
20 mg PO DAILY
vitamin B complex Capsule
1 cap PO DAILY
Eliquis 5 mg Tablet
5 mg PO BID
ferrous sulfate [Iron (ferrous sulfate)] 325 mg (65 mg iron) Tablet
325 mg PO BID
dapagliflozin propanediol [Farxiga] 10 mg Tablet
10 mg PO DAILY Qty: 30 0RF
finasteride 5 mg Tablet
5 mg PO DAILY Qty: 30 0RF
atorvastatin 10 mg Tablet
10 mg PO DAILY Qty: 30 1RF
mupirocin 2 % ointment
1 applic intranasal BID Qty: 1 0RF
Patient Comments:
bidx 3 days, today 0600 is day #4 dose
gabapentin 300 mg capsule
300 mg PO HS Qty: 10 0RF
ondansetron HCl 4 mg tablet
4 mg PO Q6H PRN (Reason: nausea and vomiting) Qty: 30 0RF
famotidine [Pepcid] 20 mg tablet
20 mg PO HS Qty: 30 0RF
Rx Instructions:
Take nightly while on post-surgical pain meds to reduce GI upset.
calcium carbonate 500 mg calcium (1,250 mg) Tablet
500 mg PO BID Qty: 30 0RF
docusate sodium 100 mg Capsule
100 mg PO BID Qty: 30 0RF
Eliquis 2.5 mg Tablet
2.5 mg PO BID Qty: 3 0RF
Rx Instructions:
Cut 5 mg tab in 02/12 (= 2.5 mg) and take 12/03 PM and 12/04 AM and PM.
Resume Eliquis 5 mg 2x daily on 12/05 AM.
lidocaine 4 % Adhesive Patch,Medicated
2 patch topical DAILY Qty: 30 0RF
Rx Instructions:
Over the counter. 12 hours on, 12 hours off.
Apply to sides of right knee/thigh.
sennosides [Samira-tracey] 8.6 mg Tablet
17.2 mg PO BID Qty: 30 0RF
magnesium hydroxide [Milk of Magnesia] 400 mg/5 mL suspension
30 ml PO HS PRN (Reason: constipation) Qty: 3780 0RF
Rx Instructions:
Add to bowel regimen of Colace and Senna should no bowel movement occur within 48-72 hours post-surgery.
acetaminophen [Tylenol Extra Strength] 500 mg tablet
1,000 mg PO Q6H Qty: 30 0RF
Rx Instructions:
DO NOT exceed >4000 mg daily.
dexamethasone 4 mg tablet
4 mg PO BID Qty: 7 0RF
Rx Instructions:
Restart night of discharge and continue twice a day until finished.
Take with food.
ethacrynic acid [Edecrin] 25 mg tablet
25 mg PO DAILY Qty: 30 5RF
Rx Instructions:
HOLD IF systolic blood pressure <115 while on post-surgical narcotics.
tamsulosin 0.4 mg Capsule
0.4 mg PO BID Qty: 60 0RF
Rx Instructions:
HOLD IF systolic blood pressure <100 while on post-surgical narcotics.
ramipril 2.5 mg capsule
2.5 mg PO BID Qty: 1 0RF
Rx Instructions:
HOLD IF systolic blood pressure <130 while on post-surgical narcotics.
amiodarone [Pacerone] 200 mg tablet
200 mg PO DAILY Qty: 1 0RF
tramadol 50 mg tablet
50 - 100 mg PO Q6H PRN (Reason: moderate-severe pain) Qty: 30 0RF
Rx Instructions:
1 tab for moderate pain, 2 if severe.
Dx total joint.
Referrals:
Eduarod Wright, [Family Provider, Family Practice]
Interventions
Interventions:
*Risk Screen - Suicide Last Done: 12/11/24 16:28
*General Assessment Last Done: 12/11/24 16:28
*Neglect/Abuse Screening Last Done: 12/11/24 16:28
*ED COVID-19 Vaccine History Last Done: 12/11/24 18:52
*ED Influenza Vaccine History Last Done: 12/11/24 18:52
EX-Lxkerk-Yzvjgxhjvf Assessment Last Done: 12/11/24 18:52
ED-Male Genitourinary Assessment Last Done: 12/11/24 18:52
Discharge Date and Time
Print Language: UKRAINIAN
[2024-12-11] MEDS: NSS 500 IV (23:17)
[2024-12-11 23:34] LABS: Magnesium 2.4 mg/dl (1.6-2.3)
[2024-12-11 23:46] LABS: INR 1.58; PT 19.1 Sec (11.4-14.6)
--- NOTE | 2024-12-11 23:47 | HPS.HSE ---
Family Physician
-
Family Physician: Eduardo Wright, DO
Chief Complaint
-
flank pain
History of Present Illness
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
deficiency anemia, advanced osteoarthritis of knee presenting with feeling unwell and decreased p.o. intake and dizziness and right flank pain radiating into the right groin. The right flank pain developed 2 days ago. He denies any numbness or
tingling in the pelvic or lower extremities. He is having difficulty ambulating due to the pain.
He recently underwent right knee surgery 2 weeks ago. Surgical wound healing well patient denies any discomfort or pain at the site.
He was told many years ago that his blood sugar was high he denies any history of diabetes.
Denies smoking or alcohol use.
Medical History
Past Medical History
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
deficiency anemia, advanced osteoarthritis of knee )
Past Surgical History: Reports Other (knee surgery )
Social History
Tobacco: Non-smoker
Alcohol: None
Drug: None
Family History
Family History: Not pertinent
Allergies / Home Medications
Allergies reflects when Allergies were last updated in [employer].
Home Medications with original date entered in [employer]
Allergy/Medication List:
Allergies
Allergy/AdvReac Type Severity Reaction Status Date / Time
clopidogrel (From Plavix) Allergy Severe Hives Verified 12/11/24 16:30
furosemide (From Lasix) Allergy Mild Rash Verified 12/11/24 16:30
Oxycodone Allergy lightheadedness, Uncoded 12/11/24 16:30
unsteadiness
Home Medications
apixaban 5 mg tablet (Eliquis) 5 mg PO BID Blood Clot Prevention/Tx 03/14/22
Held on 12/03/24. Instructions: Resume on 12/05/24.
ascorbic acid (vitamin C) 500 mg tablet (Vitamin C) 500 mg PO DAILY Supplement 03/14/22
metoprolol succinate 50 mg tablet,extended release 24 hr 50 mg PO BID Heart Disease/Condition 03/14/22
omeprazole 20 mg capsule,delayed release 20 mg PO DAILY gi issues 03/14/22
vitamin B complex 1 cap PO DAILY Supplement 03/14/22
ferrous sulfate 325 mg (65 mg iron) tablet (Iron (ferrous sulfate)) 325 mg PO BID Supplement 02/21/23
atorvastatin 10 mg tablet 10 mg PO DAILY High Cholesterol #30 tabs 04/18/23
dapagliflozin propanediol 10 mg tablet (Farxiga) 10 mg PO DAILY #30 tabs 04/18/23
finasteride 5 mg tablet 5 mg PO DAILY #30 tabs 04/18/23
mupirocin 2 % topical ointment 1 applic intranasal BID #1 tube 11/16/24
famotidine 20 mg tablet (Pepcid) 20 mg PO HS #30 tabs 11/20/24
gabapentin 300 mg capsule 300 mg PO HS neuropathic pain/sleep #10 caps 11/20/24
ondansetron HCl 4 mg tablet 4 mg PO Q6H PRN nausea and vomiting #30 tabs 11/20/24
acetaminophen 500 mg tablet (Tylenol Extra Strength) 1,000 mg (2 x 500 mg) PO Q6H #30 tabs 12/03/24
amiodarone 200 mg tablet (Pacerone) 200 mg PO DAILY #1 tab 12/03/24
apixaban 2.5 mg tablet (Eliquis) 2.5 mg PO BID #3 tabs 12/03/24
calcium carbonate 500 mg PO BID hypocalcemia #30 tabs 12/03/24
dexamethasone 4 mg tablet 4 mg PO BID Anti-inflammatory #7 tabs 12/03/24
docusate sodium 100 mg capsule 100 mg PO BID #30 caps 12/03/24
ethacrynic acid 25 mg tablet (Edecrin) 25 mg PO DAILY #30 tabs 12/03/24
lidocaine 4 % topical patch 2 patch topical DAILY #30 ea 12/03/24
magnesium hydroxide 400 mg/5 mL oral suspension (Milk of Magnesia) 30 ml PO HS PRN constipation #3,780 mL 12/03/24
ramipril 2.5 mg capsule 2.5 mg PO BID #1 cap 12/03/24
sennosides 8.6 mg tablet (Samira-tracey) 17.2 mg (2 x 8.6 mg) PO BID #30 tabs 12/03/24
tamsulosin 0.4 mg capsule 0.4 mg PO BID #60 caps 12/03/24
tramadol 50 mg tablet 50 - 100 mg (1 - 2 x 50 mg) PO Q6H PRN moderate-severe pain #30 tabs 12/03/24
Review of Systems
-
History Source: Patient
A 12 point ROS was completed and negative except as noted: Yes
Constitutional: Reports No Symptoms
EENT: Reports No Symptoms
Respiratory: Reports No Symptoms
Cardiac: Reports No Symptoms
Abdomen/GI: Reports No Symptoms
: Reports No Symptoms
Musculoskeletal: Reports No Symptoms
Skin: Reports No Symptoms
Neurological: Reports No Symptoms
Endocrine: Reports No Symptoms
Hematologic/Lymphatic: Reports No Symptoms
Psych: Reports No Symptoms
Physical Exam
Vital Signs
Vital Signs
Temp Pulse Resp BP Pulse Ox
98.3 F 71 17 145/57 97
12/11/24 16:28 12/11/24 22:51 12/11/24 22:51 12/11/24 22:00 12/11/24 22:54
Physical Exam
General: Well Developed, Well Nourished and No Apparent Distress
HEENT: NormoCephalic, Moist mucous membranes and Atraumatic
Respiratory: Clear
Cardiac: S1/S2 and Regular Rhythm; No Murmur or Rub
GI: Soft, Non Tender, Non Distended and Normal Bowel Sounds; No Organomegaly
Rectal: Deferred by Provider
Musculoskeletal: No Clubbing, No Cyanosis and No Edema
Skin: No Rash
Neuro: Nonfocal/grossly intact
Laboratory Results
-
12/11/24 16:34
12/11/24 16:34
Laboratory Results
Total Bilirubin 1.5 mg/dl (0.2-1.3) H 12/11/24 16:34
AST 13 U/L (17-59) L 12/11/24 16:34
ALT 17 U/L (0-50) 12/11/24 16:34
Alkaline Phosphatase 93 U/L (38-126) 12/11/24 16:34
Data Reviewed
-
Lab Data: Labs Reviewed by me
Old Records: Reviewed
Impression/Plan
-
IMPRESSION:
PLAN:
# Left psoas retroperitoneal hematoma
-CT abdomen pelvis shows new asymmetric enlargement hyperdense appearance along the left psoas suspicious for small retroperitoneal hematoma,
- Hemodynamically stable, hemoglobin of 8.9 from 10.9 in November
- Hold Eliquis
- Monitor hemoglobin
- Given small size conservative management is likely sufficient, consider IR for drainage for worsening of symptoms
- Continue Tylenol, tramadol
# Worsening of chronic anemia possibly symptomatic blood loss anemia
- Possibly from blood loss from knee surgery
-Monitor for retroperitoneal bleeding
- Monitor hemoglobin and transfuse for hemoglobin less than 7
- Coags pending
# Hyperglycemia possible underlying diabetes
-Blood sugar 268
- Check hemoglobin A1c
- Insulin sliding scale
Advanced osteoarthritis right knee status post right knee surgery 2 weeks ago
- Knee wound appears to be healing normally
Essential hypertension
- Continue ramipril
History of PVCs
Paroxysmal atrial fibrillation/atrial flutter
- Continue amiodarone
- Hold Eliquis
- Continue metoprolol
Sinus bradycardia
CAD status post PCI
- Continue statin
Tachycardia induced cardiomyopathy with reduced ejection fraction
- Continue dapagliflozin
- Continue ethacrynic acid
Obstructive sleep apnea
BPH
- Continue finasteride, tamsulosin
Iron deficiency anemia
DNR/DNI
DVT prophylaxis�SCDs
Regular diet
[2024-12-12] MEDS: ULTRAM 50 MG PO ×2 (01:53→12:53)
[2024-12-12 02:31] VITALS: BP 146/59
[2024-12-12 02:44] LABS: Glucose - Point of Care 239 mg/dl (70-99)
--- NOTE | 2024-12-12 03:30 | PTCARENOTE ---
PT IS AAOX3, reports right flank pain 02/20 - had Ultram in emergency room. abdomen a little distended. Bladder scan for 300ml. will monitor. pt has an Aquacel to right knee w/ small amount of drainage. +1 edema, weak PP, and mid calf w/ some
redness. Pt oriented to room w/ call prince.
[2024-12-12 06:02] LABS: Hematocrit 24.3 % (39.0-52.0); Hemoglobin 8.1 g/dL (13.0-18.0); Mean Corp Hgb Conc. 33.3 g/dL (33.0-37.0); Mean Corpuscular Volume 88.0 fL (80.0-94.0); Nucleated Red Blood Cells % 0 % (-); Platelet Count 343 10^3/uL (130-400); Red Cell Dist. Width 17.2 % (11.5-14.5)
[2024-12-12 06:30] LABS: ALT (SGPT) 15 U/L (0-50); AST (SGOT) 15 U/L (17-59); Albumin 2.8 g/dl (3.5-5.0); Alkaline Phosphatase 86 U/L (38-126); Blood Urea Nitrogen 35 mg/dl (9-20); Calcium 7.6 mg/dl (8.4-10.2); Carbon Dioxide 27 mmol/L (22-30); Chloride 103 mmol/L (98-107); Estimated Creatinine Clearance 48 ml/min; Glucose 183 mg/dl (70-99); Potassium 4.2 mmol/L (3.5-5.1); Sodium 132 mmol/L (135-145); Total Protein 4.7 g/dl (6.3-8.2); eGFR > 60.00
[2024-12-12 07:00] VITALS: BP 131/56
[2024-12-12 07:45] LABS: Glucose - Point of Care 209 mg/dl (70-99)
[2024-12-12] MEDS: TYLENOL 650 MG PO (07:49)
[2024-12-12 09:23] LABS: Reticulocyte Count 3.8 % (0.4-2.8)
[2024-12-12 09:26] LABS: Iron 30 ug/dl (49-181)
[2024-12-12 09:29] VITALS: BMI 28.8
[2024-12-12 09:36] LABS: Total Iron Binding Capacity 207 ug/dl (261-462)
[2024-12-12] MEDS: NOVOLOG FLEXPEN-LOW RESISTANCE 2 UNITS SC ×2 (09:36→19:06)
--- NOTE | 2024-12-12 09:51 | W.PN.HOSP.TC ---
Today's Communication/Plan
-
Monitor hemoglobin
PT/OT
Out of bed to chair
Assessment / Plan
Assessment / Plan
Gen-AAOx3, NAD
HEENT-NC, AT, anicteric, clear oral mm
Neck-supple
CV-reg, no M, +S1/S2
Lungs-clear B/L
Abd-soft, NT, ND
Ext-no edema
Musculoskeletal-no cyanosis, clubbing
Skin-warm and dry
Neuro-grossly non-focal
Psych-calm, cooperative
Acute blood loss anemia -hemoglobin down to 8.1. Baseline hemoglobin unknown but preoperative hemoglobin was 10.9 on 11/16/2024. MCV normal.
Presumably due to left retroperitoneal hematoma, noted in the left psoas muscle as a small hematoma on CT scan.
Acute blood loss anemia exacerbated by anticoagulation with Eliquis, last dose was Saturday morning.
Hold further Eliquis. Monitor hemoglobin closely. Consent for transfusion obtained.
Check anemia labs. Heme check stools. Patient has been on chronic iron, notes dark stools. No reports of hematochezia.
Hyponatremia -present on admission. Possibly related to pain. Will check blood work. Check urine.
Right flank pain -possibly musculoskeletal etiology. Urinalysis unremarkable. Nothing concerning noted on CT abdomen/pelvis involving the right side.
Right knee osteoarthritis -underwent right total knee arthroplasty, 12/02/2024. Consult PT.
Essential hypertension -stable.
Paroxysmal atrial fibrillation -continue amiodarone. Hold Eliquis as above.
CAD -history of PCI. Aspirin was discontinued April 2023 by cardiology as his coronary stents are remote and he presented to the hospital at the time with hematuria.
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
Compensated.
Hyperlipidemia -atorvastatin.
JESÚS
BPH
DNR
Dispo -May need SNF on discharge given ambulatory dysfunction, weakness. Discussed with patient's daughter Rashmi on the phone.
Patient's recently and he currently lives alone. Difficult taking care of himself.
Anticipated Discharge: > 48 hours
Subjective/Interval History
-
Date of Service: December 12, 2024
Patient seen and examined. Complaining of right flank pain.
Objective Data
-
Labs:
Laboratory Results
12/11/24 12/12/24
23:09 05:16
WBC 7.5
Hgb 8.1 L
Hct 24.3 L
Plt Count 343
PT 19.1 H
INR 1.58
Sodium 132 L
Potassium 4.2
Chloride 103
Carbon Dioxide 27
BUN 35 H
Creatinine 1.2
Glucose 183 H
Calcium 7.6 L
Total Bilirubin 1.5 H
AST 15 L
ALT 15
Alkaline Phosphatase 86
Vital Signs:
Vital Signs
Temp Pulse Resp BP Pulse Ox
98.4 F 65 16 131/56 96
12/12/24 07:00 12/12/24 07:00 12/12/24 07:00 12/12/24 07:00 12/12/24 07:00
I&O
12/11/24 12/12/24 12/13/24
06:59 06:59 05:59
Intake Total 100 / 100
Output Total 275 / 275
Balance -175 / -175
Review of Systems
-
History Source: Patient
All other systems: Reviewed and negative
[2024-12-12 10:28] LABS: Ferritin 289.0 ng/ml (17.9-464.0)
[2024-12-12 10:42] LABS: Vitamin B12 > 1000 pg/ml (239-931)
[2024-12-12 10:44] LABS: TSH 2.29 uIU/ml (0.47-4.68)
[2024-12-12 11:57] LABS: Folate 15.2 ng/ml (2.76-20)
[2024-12-12] MEDS: NOVOLOG FLEXPEN-LOW RESISTANCE 3 UNITS SC (12:50)
[2024-12-12 13:28] VITALS: BP 128/52; PULSE 80; O2SAT 98
[2024-12-12 14:04] VITALS: BP 125/52; PULSE 81; O2SAT 98
[2024-12-12 15:00] VITALS: BP 143/61
--- NOTE | 2024-12-12 15:42 | CM ---
I.A: Completed By GALO Mendiola. Patient lives at [facility] (Independent Living), uses a rolling walker, used VN from [facility] in the past, and wants to go to [facility]. Patient's a month ago at [facility].
PCP: Dr. Eduardo Wright
Pharmacy: [facility]
Patient is recommended for SNF as of 13:30 today so made referral to [facility]. PLAN: SNF when ready.
[2024-12-12 19:23] LABS: Glucose - Point of Care 251 mg/dl (70-99)
[2024-12-12 19:23] LABS: Glucose - Point of Care 276 mg/dl (70-99)
[2024-12-12 21:27] LABS: Glucose - Point of Care 241 mg/dl (70-99)
[2024-12-12] MEDS: ALTACE 2.5 MG PO (22:14)
[2024-12-12] MEDS: TOPROL XL 50 MG PO (22:14)
[2024-12-12 22:29] VITALS: BP 123/59
[2024-12-13] MEDS: ULTRAM 50 MG PO ×2 (01:10→08:44)
[2024-12-13 07:10] VITALS: BP 130/53
[2024-12-13 07:47] LABS: Hematocrit 25.8 % (39.0-52.0); Hemoglobin 8.2 g/dL (13.0-18.0); Mean Corp Hgb Conc. 31.8 g/dL (33.0-37.0); Mean Corpuscular Volume 93.5 fL (80.0-94.0); Nucleated Red Blood Cells % 0 % (-); Platelet Count 323 10^3/uL (130-400); Red Cell Dist. Width 17.3 % (11.5-14.5)
[2024-12-13 08:13] LABS: ALT (SGPT) 14 U/L (0-50); AST (SGOT) 14 U/L (17-59); Albumin 2.9 g/dl (3.5-5.0); Alkaline Phosphatase 93 U/L (38-126); Blood Urea Nitrogen 27 mg/dl (9-20); Calcium 7.8 mg/dl (8.4-10.2); Carbon Dioxide 26 mmol/L (22-30); Chloride 105 mmol/L (98-107); Estimated Creatinine Clearance 53 ml/min; Glucose 178 mg/dl (70-99); Potassium 4.4 mmol/L (3.5-5.1); Sodium 133 mmol/L (135-145); Total Protein 4.9 g/dl (6.3-8.2); eGFR > 60.00
[2024-12-13 08:30] LABS: Glucose - Point of Care 213 mg/dl (70-99)
[2024-12-13] MEDS: NOVOLOG FLEXPEN-LOW RESISTANCE 2 UNITS SC (08:34)
[2024-12-13] MEDS: LIPITOR 10 MG PO (08:35)
[2024-12-13] MEDS: ALTACE 2.5 MG PO ×2 (08:35→22:21)
[2024-12-13] MEDS: TOPROL XL 50 MG PO ×2 (08:35→22:21)
[2024-12-13] MEDS: LIDOCAINE 4% PATCH 2 PATCH TOPICAL (08:36)
[2024-12-13] MEDS: PACERONE 200 MG PO (08:46)
--- NOTE | 2024-12-13 13:01 | W.PN.HOSP.TC ---
Today's Communication/Plan
-
Continue current care
Assessment / Plan
Assessment / Plan
Gen-AAOx3, NAD
HEENT-NC, AT, anicteric, clear oral mm
Neck-supple
CV-reg, no M, +S1/S2
Lungs-clear B/L
Abd-soft, NT, ND
Ext-no edema
Musculoskeletal-no cyanosis, clubbing
Skin-warm and dry
Neuro-grossly non-focal
Psych-calm, cooperative
Acute blood loss anemia -hemoglobin stable at 8.2 today. Hemoglobin was 8.9 on admission.
Baseline hemoglobin unknown but preoperative hemoglobin was 10.9 on 11/16/2024. MCV normal.
Presumably acute anemia due to left retroperitoneal hematoma, noted in the left psoas muscle as a small hematoma on CT scan.
Acute blood loss anemia exacerbated by anticoagulation with Eliquis, last dose was Saturday morning.
Hold further Eliquis. Monitor hemoglobin closely. Consent for transfusion obtained.
Patient has been on chronic iron, notes dark stools. No reports of hematochezia.
No evidence of iron deficiency on labs. B12, folic acid normal. Heme test stools negative.
Hyponatremia -present on admission. 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 Sodium stable at 133. Mild fluid restriction. Urine osmolarity elevated.
Right flank pain -possibly musculoskeletal etiology. Urinalysis unremarkable. Nothing concerning noted on CT abdomen/pelvis involving the right side.
Right knee osteoarthritis -underwent right total knee arthroplasty, 12/02/2024. Consult PT.
Essential hypertension -stable.
Paroxysmal atrial fibrillation -continue amiodarone. Hold Eliquis as above.
CAD -history of PCI. Aspirin was discontinued April 2023 by cardiology as his coronary stents are remote and he presented to the hospital at the time with hematuria.
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
Compensated.
Hyperlipidemia -atorvastatin.
JESÚS
BPH
DNR
Dispo -SNF if stable on Saturday.
Anticipated Discharge: Within 24 hours
Subjective/Interval History
-
Date of Service: December 13, 2024
Patient seen and examined. No complaints.
Objective Data
-
Labs:
Laboratory Results
12/13/24
06:52
WBC 7.9
Hgb 8.2 L
Hct 25.8 L
Plt Count 323
Sodium 133 L
Potassium 4.4
Chloride 105
Carbon Dioxide 26
BUN 27 H
Creatinine 1.1
Glucose 178 H
Calcium 7.8 L
Total Bilirubin 1.7 H
AST 14 L
ALT 14
Alkaline Phosphatase 93
Vital Signs:
Vital Signs
Temp Pulse Resp BP Pulse Ox
98.3 F 67 16 130/53 96
12/13/24 07:10 12/13/24 07:10 12/13/24 07:10 12/13/24 07:10 12/13/24 07:10
I&O
12/12/24 12/13/24 12/14/24
06:59 05:59 06:59
Intake Total 100 / 100 1380 / 1380
Output Total 275 / 275 950 / 950
Balance -175 / -175 430 / 430
Review of Systems
-
History Source: Patient
All other systems: Reviewed and negative
[2024-12-13 13:12] LABS: Glucose - Point of Care 263 mg/dl (70-99)
[2024-12-13] MEDS: NOVOLOG FLEXPEN-LOW RESISTANCE 3 UNITS SC (13:56)
[2024-12-13 14:28] VITALS: BP 133/52; BP 140/53
[2024-12-13 15:10] VITALS: BP 109/42
[2024-12-13] MEDS: NOVOLOG FLEXPEN-LOW RESISTANCE 4 UNITS SC (18:21)
[2024-12-13 21:57] LABS: Glucose - Point of Care 189 mg/dl (70-99)
[2024-12-13 21:57] LABS: Glucose - Point of Care 308 mg/dl (70-99)
[2024-12-13 22:19] VITALS: BP 139/53
[2024-12-13 23:29] VITALS: BP 124/55
[2024-12-14] MEDS: ULTRAM 50 MG PO (04:29)
[2024-12-14 05:42] VITALS: BMI 25.0
[2024-12-14 07:08] VITALS: BP 103/51
[2024-12-14 07:12] LABS: Glucose - Point of Care 194 mg/dl (70-99)
[2024-12-14] MEDS: ALTACE PO (08:30)
[2024-12-14] MEDS: PACERONE 200 MG PO (08:34)
[2024-12-14] MEDS: NOVOLOG FLEXPEN-LOW RESISTANCE 1 UNITS SC (08:36)
[2024-12-14] MEDS: LIPITOR 10 MG PO (08:37)
[2024-12-14] MEDS: LIDOCAINE 4% PATCH 2 PATCH TOPICAL (08:37)
[2024-12-14] MEDS: TOPROL XL PO (08:42)
[2024-12-14 08:45] LABS: Hematocrit 30.1 % (39.0-52.0); Hemoglobin 9.5 g/dL (13.0-18.0); Mean Corp Hgb Conc. 31.6 g/dL (33.0-37.0); Mean Corpuscular Volume 92.6 fL (80.0-94.0); Nucleated Red Blood Cells % 0.2 % (-); Platelet Count 429 10^3/uL (130-400); Red Cell Dist. Width 17.5 % (11.5-14.5)
[2024-12-14 09:10] LABS: ALT (SGPT) 15 U/L (0-50); AST (SGOT) 15 U/L (17-59); Albumin 3.3 g/dl (3.5-5.0); Alkaline Phosphatase 108 U/L (38-126); Blood Urea Nitrogen 27 mg/dl (9-20); Calcium 7.9 mg/dl (8.4-10.2); Carbon Dioxide 24 mmol/L (22-30); Chloride 104 mmol/L (98-107); Estimated Creatinine Clearance 53 ml/min; Glucose 193 mg/dl (70-99); Potassium 4.7 mmol/L (3.5-5.1); Sodium 133 mmol/L (135-145); Total Protein 5.5 g/dl (6.3-8.2); eGFR > 60.00
[2024-12-14] MEDS: LR 500 IV ×3 (09:29→23:54)
--- NOTE | 2024-12-14 12:05 | CM ---
Addendum entered by Kassandrabonnie Salter 12/14/24 15:44:
Pt accepted for STR at [facility]
SNF auth initiated with [facility] [phone] (p)
Clinicals faxed to [phone] (f)
Pending SNF# [id number]
Discharge Disposition- [facility] pending [facility] auth
Addendum entered by Kassandra [facility] 12/14/24 12:10:
Update to dtr/Rashmi over phone per pt request
Original Note:
CM reviewed pt with nursing- plan for labs this evening and possibility to restart Eliquis
Outreach to [facility] admissions- no SNF beds available
Bedside meeting with pt- he is in agreement with add'l referral to [facility]
Referral sent via [facility] and pending, call to admissions to make aware of referra;
Pt will need [facility] auth, not [facility]
Discharge Disposition- SNF pending [facility] auth
--- NOTE | 2024-12-14 12:35 | W.PN.HOSP.TC ---
Today's Communication/Plan
-
IV fluids started 500 cc at 80 cc/h
Repeat CBC at 6 PM as labs for morning look hemoconcentrated
If hemoglobin stable and if cardiology agrees plan to resume Eliquis after 6 PM hemoglobin check
Assessment / Plan
Assessment / Plan
Gen-AAOx3, NAD
HEENT-NC, AT, anicteric, clear oral mm
Neck-supple
CV-reg, no M, +S1/S2
Lungs-clear B/L
Abd-soft, NT, ND
Ext-no edema
Musculoskeletal-no cyanosis, clubbing
Skin-warm and dry
Neuro-grossly non-focal
Psych-calm, cooperative
Acute blood loss anemia
Likely multifactorial in the setting of recent surgery with a right total knee arthroplasty 12/02 and findings of psoas/RP hematoma
Hold Eliquis
CBC from 12/14 - AM appears hemoconcentrated as on fluid restricted diet
- Repeat CBC at 6 PM after IV fluids (LR 500cc bag at 80cc/hr)
- If cleared by cardiology and if hemoglobin stable greater than baseline which is in the eights then can go ahead resume Eliquis and repeat CBC in the morning
Has not required blood transfusion, however consent has been obtained and is in chart
Hyponatremia
Start LR
Hyperglycemic Na corrects to 134
Was on fluid restricted diet, suspect cause some hemoconcentration
Repeat BMP in the AM
Right flank pain -possibly musculoskeletal etiology. Urinalysis unremarkable. Nothing concerning noted on CT abdomen/pelvis involving the right side.
Right knee osteoarthritis -underwent right total knee arthroplasty, 12/02/2024.
PT rec SNF
Essential hypertension -stable.
Paroxysmal atrial fibrillation -continue amiodarone.
Consult cards as family has requested risk vs benefit discussion with cardiology about eliquis
CAD -history of PCI. Aspirin was discontinued April 2023 by cardiology as his coronary stents are remote and he presented to the hospital at the time with hematuria.
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
Compensated.
Hyperlipidemia -atorvastatin.
DNR
Dispo -SNF
Anticipated Discharge: Within 24 hours
Subjective/Interval History
-
Date of Service: December 14, 2024
Seen and examined. No new complaints. No acute overnight events..
After being initiated on IV fluids states feels better
Objective Data
-
Labs:
Laboratory Results
12/14/24 12/14/24
08:03 18:00
WBC 12.9 H Pending
Hgb 9.5 L Pending
Hct 30.1 L Pending
Plt Count 429 H D Pending
Sodium 133 L
Potassium 4.7
Chloride 104
Carbon Dioxide 24
BUN 27 H
Creatinine 1.1
Glucose 193 H
Calcium 7.9 L
Total Bilirubin 2.0 H
AST 15 L
ALT 15
Alkaline Phosphatase 108
Vital Signs:
Vital Signs
Temp Pulse Resp BP Pulse Ox
98.0 F 67 18 103/51 97
12/14/24 07:08 12/14/24 08:34 12/14/24 07:08 12/14/24 08:34 12/14/24 07:08
I&O
12/13/24 12/14/24 12/15/24
05:59 06:59 06:59
Intake Total 1380 / 1380 660 / 660
Output Total 950 / 950 850 / 850
Balance 430 / 430 -190 / -190
[2024-12-14 12:51] LABS: Glucose - Point of Care 228 mg/dl (70-99)
[2024-12-14] MEDS: NOVOLOG FLEXPEN-LOW RESISTANCE 2 UNITS SC ×2 (13:22→17:47)
[2024-12-14 13:40] VITALS: BP 120/52; PULSE 67
[2024-12-14 14:45] VITALS: BP 109/44
--- NOTE | 2024-12-14 14:58 | CON.CAR ---
Consultation
Consultation Request
Date/Time Consultation Requested: 12/14/2024 at noon
Date/Time Consultation Performed: 12/14/2024 at 2 PM
Requesting Provider: Dr. Migue Thomason
Performing Provider: Eduardo Roque
Reason for Consultation: Paroxysmal atrial fibrillation/psoas hematoma
Medical History
-
History of Present Illness:
79-year-old man with history of PVI/CTI flutter ablation 2022 x 2 with a third procedure February 2023 followed by recurrent AF that has subsequently been suppressed with amiodarone and no recurrences over the last 12 to 18 months. He underwent
right total knee arthroplasty on December 03 and then readmitted with psoas hematoma
PMH: Hypercholesterolemia, obstructive sleep apnea, bladder outlet obstruction, history of PCI with stents x 5, ischemic cardiomyopathy
Recent medications: Amiodarone 200 mg a day, atorvastatin 10 mg a day, Edecrin 25 mg daily, Eliquis 5 mg twice daily, Farxiga 10 mg a day, finasteride, metoprolol ER 25 mg twice daily, omeprazole, ramipril 2.5 mg a day, tamsulosin
Allergies: Clopidogrel, presumably furosemide
Rest of history as below
103/51, pulse 67 respiratory rate 18, afebrile, Head neck exam unremarkable lungs are clear, regular rate and rhythm without obvious murmurs JVD okay abdomen benign extremities without clubbing cyanosis or edema
ECG 11/10/2024: Sinus bradycardia, poor R wave progression
CT of abdomen and pelvis 12/11/2024 left psoas hematoma, not large, bladder outlet obstruction, possible cystitis, severe splenomegaly, cholelithiasis
Hemoglobin 8.1, was 9.7 at discharge, BUN and creatinine are 27 and 1.1, hemoglobin is 4.7, sodium is 133
Past Medical History
Past Surgical History: Other (See above)
Social History
Tobacco: Non-Smoker
Alcohol: None
Drug: None
Personal:
Living: With Family ([facility], daughter Rashmi is contact)
Employment: Retired
Family History
Family History: Reviewed & Not Pertinent
Allergies / Home Medications
Allergy/AdvReac Type Severity Reaction Status Date / Time
clopidogrel (From Plavix) Allergy Severe Hives Verified 12/11/24 16:30
furosemide (From Lasix) Allergy Mild Rash Verified 12/11/24 16:30
Oxycodone Allergy lightheadedness, Uncoded 12/11/24 16:30
unsteadiness
�Medication �Instructions �Recorded �Confirmed �Type
apixaban 5 mg tablet (Eliquis) 5 mg PO BID Blood Clot 03/14/22 12/12/24 History
Held on 12/03/24. Prevention/Tx
Instructions: Resume on
12/05/24.
ascorbic acid (vitamin C) 500 mg 500 mg PO DAILY Supplement 03/14/22 12/12/24 History
tablet (Vitamin C)
metoprolol succinate 50 mg 50 mg PO BID Heart 03/14/22 12/12/24 History
tablet,extended release 24 hr Disease/Condition
omeprazole 20 mg capsule,delayed 20 mg PO DAILY gi issues 03/14/22 12/12/24 History
release
vitamin B complex 1 cap PO DAILY Supplement 03/14/22 12/12/24 History
ferrous sulfate 325 mg (65 mg 325 mg PO BID Supplement 02/21/23 12/12/24 History
iron) tablet (Iron (ferrous
sulfate))
atorvastatin 10 mg tablet 10 mg PO DAILY High Cholesterol 04/18/23 12/12/24 Rx
#30 tabs
ondansetron HCl 4 mg tablet 4 mg PO Q6H PRN nausea and 11/20/24 12/12/24 Rx
vomiting #30 tabs
acetaminophen 500 mg tablet 1,000 mg (2 x 500 mg) PO Q6H #30 12/03/24 12/12/24 Rx
(Tylenol Extra Strength) tabs
calcium carbonate 500 mg PO BID hypocalcemia #30 tabs 12/03/24 12/12/24 Rx
tramadol 50 mg tablet 50 - 100 mg (1 - 2 x 50 mg) PO Q6H 12/03/24 12/12/24 Rx
PRN moderate-severe pain #30 tabs
amiodarone 200 mg tablet (Pacerone) 200 mg PO DAILY AFIB 12/12/24 12/12/24 History
dapagliflozin propanediol 10 mg 10 mg PO DAILY Diabetes 12/12/24 12/12/24 History
tablet (Farxiga)
ethacrynic acid 25 mg tablet 25 mg PO DAILY Fluid 12/12/24 12/12/24 History
(Edecrin) Retention/Swelling
famotidine 20 mg tablet (Pepcid) 20 mg PO HS Gastrointestinal Issue 12/12/24 12/12/24 History
finasteride 5 mg tablet 5 mg PO DAILY BPH 12/12/24 12/12/24 History
lidocaine 4 % topical patch 2 patch topical DAILY Pain 12/12/24 12/12/24 History
ramipril 2.5 mg capsule 2.5 mg PO BID Blood Pressure 12/12/24 12/12/24 History
tamsulosin 0.4 mg capsule 0.4 mg PO BID Urinary Issue 12/12/24 12/12/24 History
Review of Systems
-
All other systems: Negative unless noted
Physical Exam
Vital Signs
Temp Pulse Resp BP Pulse Ox
36.6 C 73 18 109/44 98
12/14/24 14:45 12/14/24 14:45 12/14/24 14:45 12/14/24 14:45 12/14/24 14:45
Lab Results
12/14/24 08:03
Physical Exam
General: Well Developed and Other (Mildly uncomfortable)
HEENT: Normocephalic
Respiratory: Clear
Cardiac: Regular Rhythm and Other (No significant murmurs)
GI: Soft, Non Distended and Normal Bowel Sounds
Musculoskeletal: No Edema
Skin: Warm and Dry
Neuro: AO x 3
Psych: Calm
Impression / Plan
-
Echo April 2023: EF 30-35% in the setting of atrial fibrillation, mild to moderate mitral regurgitation, trace aortic regurgitation, pulmonary artery systolic pressure 31 mmHg
Impression:
Left psoas hematoma
Paroxysmal atrial fibrillation, status post PVI x 3, now on amiodarone
Right total knee arthroplasty December 03, 2024
CAD, status post PCI chronic HFrEF
Chronic HFrEF
Hyponatremia
Hyperlipidemia
Obstructive sleep apnea
Blood loss anemia
DNR
Plan:
Despite a left psoas hematoma which occurred without trauma, associated with anemia, he appears fairly stable.
He is in sinus rhythm on amiodarone, so for the short intermediate term cardioembolic risk is low off Eliquis. Eliquis can be held for days to weeks as needed with low embolic risk.
Would be in favor of restarting Eliquis in 5 to 7 days if stable and following hemoglobin. If recurrent evidence of bleeding, discontinuation of Eliquis with consideration of Linq implant, or possibly watchman would be an issue.
No evidence of heart failure at present. His last ejection fraction was reduced. He is on a beta-diane and calcium diane. As an outpatient he has been on dapagliflozin. Spironolactone could also be considered.
Echo can be repeated as an outpatient.
From cardiac standpoint okay to proceed with discharge planning
Clinical summary: Jac has a history of atrial flutter with PVI and CTI flutter ablation in 03/2022 with the left PV tay needing treatment from both 28mm cryoballoon and 4mm tacticath at a recessed tay. Presenting rhythm was CTI flutter. He has
recurrent atrial arrhythmias and presented for repeat procedure. Bidirectional CTI block was brought about in a lateral pouch on intracardiac ultrasound at 2022 procedure. HE then presented for redo CTI/PVI February 2023 and where CTI was reablated
plus PVI/LAPW isolation. He then recurred with AF and was placed back on amiodarone. He spontaneously converted to sinus rhythm.�He has demonstrated drug refractory atrial fibrillation by ambulatory monitor on multaq therapy (30%) burden and was
transitioned in early 2021 to amiodarone therapy which diminished and eventually controlled his AF. He then presented with Dr. Houston in asymptomatic atrial flutter which is typical appearing.�He has a history of coronary artery disease s/p prior
PCI/CAD and has a plavix allergy. He currently is on aspirin and oral anticoagulation with eliquis. He has known JESÚS but does not utilize CPAP.� Also carries a history of HTN. The allergy to plavix is rash.� EF% normal by echo.
Data Reviewed
-
EKG: Tracing Personally Visualized and interpreted
CT Scan: Report Reviewed by me
Medical Tests (Nuc Med, Echo etc): Report Reviewed by me
Labs: Labs Reviewed by me
Old Records: Reviewed
[2024-12-14 15:16] VITALS: BP 117/50; PULSE 70; O2SAT 99
[2024-12-14] MEDS: TYLENOL 650 MG PO (17:21)
[2024-12-14 17:46] LABS: Glucose - Point of Care 219 mg/dl (70-99)
[2024-12-14 19:06] LABS: Hematocrit 28.7 % (39.0-52.0); Hemoglobin 9.3 g/dL (13.0-18.0); Mean Corp Hgb Conc. 32.4 g/dL (33.0-37.0); Mean Corpuscular Volume 91.1 fL (80.0-94.0); Platelet Count 208 10^3/uL (130-400); Red Cell Dist. Width 17.5 % (11.5-14.5)
--- NOTE | 2024-12-14 20:20 | W.PN.UPDATE ---
Update Note
Progress Note Update
Based on cardiology recommendation (Dr rocha via [facility]) will start eliquis tomorrow.
[2024-12-14] MEDS: LR IV (20:47)
[2024-12-14] MEDS: ALTACE 2.5 MG PO (20:55)
[2024-12-14] MEDS: TOPROL XL 50 MG PO (20:56)
[2024-12-14 21:44] LABS: Glucose - Point of Care 219 mg/dl (70-99)
[2024-12-14 23:06] VITALS: BP 126/53
[2024-12-15 04:00] VITALS: BMI 25.4
[2024-12-15] MEDS: ULTRAM 50 MG PO (04:58)
[2024-12-15 06:59] LABS: Blood Urea Nitrogen 31 mg/dl (9-20); Calcium 7.4 mg/dl (8.4-10.2); Carbon Dioxide 25 mmol/L (22-30); Chloride 105 mmol/L (98-107); Estimated Creatinine Clearance 53 ml/min; Glucose 164 mg/dl (70-99); Potassium 4.7 mmol/L (3.5-5.1); Sodium 133 mmol/L (135-145); eGFR > 60.00
[2024-12-15 07:17] LABS: Hematocrit 24.0 % (39.0-52.0); Hemoglobin 7.6 g/dL (13.0-18.0); Mean Corp Hgb Conc. 31.7 g/dL (33.0-37.0); Mean Corpuscular Volume 92.7 fL (80.0-94.0); Platelet Count 304 10^3/uL (130-400); Red Cell Dist. Width 17.5 % (11.5-14.5)
[2024-12-15 07:58] VITALS: BP 120/57
[2024-12-15 08:03] LABS: Glucose - Point of Care 184 mg/dl (70-99)
[2024-12-15] MEDS: LIPITOR 10 MG PO (08:21)
[2024-12-15] MEDS: PACERONE 200 MG PO (08:22)
[2024-12-15] MEDS: TOPROL XL 50 MG PO (08:22)
[2024-12-15] MEDS: ALTACE PO (08:22)
[2024-12-15] MEDS: LIDOCAINE 4% PATCH 2 PATCH TOPICAL (08:23)
[2024-12-15] MEDS: NOVOLOG FLEXPEN-LOW RESISTANCE 1 UNITS SC ×2 (08:24→13:02)
[2024-12-15 09:05] LABS: Hematocrit 25.3 % (39.0-52.0); Hemoglobin 8.4 g/dL (13.0-18.0); Mean Corp Hgb Conc. 33.2 g/dL (33.0-37.0); Mean Corpuscular Volume 89.1 fL (80.0-94.0); Platelet Count 362 10^3/uL (130-400); Red Cell Dist. Width 17.3 % (11.5-14.5)
--- NOTE | 2024-12-15 10:49 | W.PN.CARDCBS ---
Today's Communication / Plan
-
Okay to restart Eliquis but not urgent, would favor another day or 2 of delay
Discharge planning
We will arrange for outpatient cardiac follow-up
Impression / Plan
-
Echo April 2023: EF 30-35% in the setting of atrial fibrillation, mild to moderate mitral regurgitation, trace aortic regurgitation, pulmonary artery systolic pressure 31 mmHg
Impression:
Left psoas hematoma
Paroxysmal atrial fibrillation, status post PVI x 3, now on amiodarone
Right total knee arthroplasty December 03, 2024
CAD, status post PCI chronic HFrEF
Chronic HFrEF
Hyponatremia
Hyperlipidemia
Obstructive sleep apnea
Blood loss anemia
DNR
Plan:
Overall stable from a cardiac standpoint, though his hemoglobin drifted down with hydration.
There is no barboza to restart Eliquis. Would probably be okay to resume today, but I would prefer to wait another day or 2. He is in sinus rhythm so the stroke risk is extremely low over the short intermediate term, and I think anemia and recurrent
bleeding is a bigger risk.
Defer to hospitalist as to whether patient can be transferred to rehab or should be observed overnight.
We will arrange for cardiac follow-up.
Clinical summary: Jac has a history of atrial flutter with PVI and CTI flutter ablation in 03/2022 with the left PV tay needing treatment from both 28mm cryoballoon and 4mm tacticath at a recessed aty. Presenting rhythm was CTI flutter. He has
recurrent atrial arrhythmias and presented for repeat procedure. Bidirectional CTI block was brought about in a lateral pouch on intracardiac ultrasound at 2022 procedure. HE then presented for redo CTI/PVI February 2023 and where CTI was reablated
plus PVI/LAPW isolation. He then recurred with AF and was placed back on amiodarone. He spontaneously converted to sinus rhythm.�He has demonstrated drug refractory atrial fibrillation by ambulatory monitor on multaq therapy (30%) burden and was
transitioned in early 2021 to amiodarone therapy which diminished and eventually controlled his AF. He then presented with Dr. Houston in asymptomatic atrial flutter which is typical appearing.�He has a history of coronary artery disease s/p prior
PCI/CAD and has a plavix allergy. He currently is on aspirin and oral anticoagulation with eliquis. He has known JESÚS but does not utilize CPAP.� Also carries a history of HTN. The allergy to plavix is rash.� EF% normal by echo.
Progress Note - Compensation Adjuster
Subjective
Date of Service: December 15, 2024:
79-year-old man with history of PVI/CTI flutter ablation 2022 x 2 with a third procedure February 2023 followed by recurrent AF that has subsequently been suppressed with amiodarone and no recurrences over the last 12 to 18 months. He underwent
right total knee arthroplasty on December 03 and then readmitted with psoas hematoma
PMH: Hypercholesterolemia, obstructive sleep apnea, bladder outlet obstruction, history of PCI with stents x 5, ischemic cardiomyopathy
Current meds: Amiodarone 200 mg a day, atorvastatin 10 mg a day, metoprolol ER 50 twice daily and ramipril 2 mg a day
120/57, pulse 65, respiratory rate 18, afebrile, weight is 77.9 kg, head neck exam unremarkable, lungs are clear, regular rate and rhythm, no obvious murmurs, abdomen benign, extremities without clubbing cyanosis or edema
Hemoglobin is 8.4, had been 7.6 this morning
Sodium is 133, potassium is 4.7, BUN and creatinine are 31 and 1.1
Objective
Labs:
12/15/24 08:49
12/15/24 06:21
Labs
Hgb 8.4 g/dL (13.0-18.0) L 12/15/24 08:49
Hct 25.3 % (39.0-52.0) L 12/15/24 08:49
Plt Count 362 10^3/uL (130-400) 12/15/24 08:49
PT 19.1 Sec (11.4-14.6) H 12/11/24 23:09
INR 1.58 12/11/24 23:09
Sodium 133 mmol/L (135-145) L 12/15/24 06:21
Potassium 4.7 mmol/L (3.5-5.1) 12/15/24 06:21
BUN 31 mg/dl (9-20) H 12/15/24 06:21
Creatinine 1.1 mg/dL (0.7-1.3) 12/15/24 06:21
Glucose 164 mg/dl (70-99) H 12/15/24 06:21
Vital Signs and I&O:
Vital Signs
Temp Pulse Resp BP Pulse Ox
36.7 C 65 18 120/57 99
12/15/24 07:58 12/15/24 08:22 12/15/24 07:58 12/15/24 08:22 12/15/24 07:58
Vital Signs
Temp Pulse Resp BP Pulse Ox
36.7 C 65 18 120/57 99
12/15/24 07:58 12/15/24 08:22 12/15/24 07:58 12/15/24 08:22 12/15/24 07:58
Intake & Output
12/13/24 12/14/24 12/15/24 12/16/24
06:59 07:59 07:59 07:59
Intake Total 1380 / 1380 660 / 660 1440 / 1440
Output Total 950 / 950 850 / 850 500 / 500
Balance 430 / 430 -190 / -190 940 / 940
Physical Exam
Physical Exam
See above
[2024-12-15 12:47] LABS: Glucose - Point of Care 168 mg/dl (70-99)
--- NOTE | 2024-12-15 13:45 | CM ---
CM following re: discharge planning.
reviewed pt's chart, met with pt
According to MD pt is medically stable to be discharged today. pt is awre, expressed his agreement.
IMM reviewed, placed on chart, pt has a copy.
CM received a phone call from Home and sales representative cash registers Niyah and she confirmed that pt is approved for SNF level of care at [facility] for 3 initial days from today 12/15/24 till 12/17/24 with LCD and NRD 12/17/24. Auth: [id number].
Reviewed Niyah, fax: [phone].
Auth information forwarded to [facility] director of provider relations and she confirmed that pt is accepted for admission today.
to arrange ambulance transportation, BLS. PMNC completed and left with UC.
[facility] nursing report: [phone]
Discharge instructions fax: [phone]
D/C plan: [facility].
--- NOTE | 2024-12-15 13:55 | W.DCSUMMARY ---
Discharge Summary
Discharge Data
Date of Admission: 12/11/24
Date of Discharge: 12/15/24
-
Pending Results: No
Hospital Course
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
deficiency anemia, advanced osteoarthritis of knee
Presented with right flank pain. Had a CT abdomen pelvis that demonstrated left psoas retroperitoneal hematoma. Fortunately remained hemodynamically stable however did note a reduction in hemoglobin from 10.9 in November prior to knee replacement
-8.9 on arrival. Hemoglobin has remained stable throughout. However noted to be on Eliquis and therefore was held starting 12/11/2024. Was evaluated by cardiology which recommended can resume eliquis in 2days. Completed a patient centered
discussion with daughter (risk bleeding, benefit stroke prevention) and they would like to resume Eliquis sooner than later with repeat blood work. Will need outpatient follow up with cardiology.
Eliquis was resumed on 12/15/2024. Will need to repeat CBC and BMP in 5 days to 1 week. If note abdominal pain palpitation shortness of breath paleness lethargy then would repeat CBC sooner, consider holding Eliquis and speak with medical provider
at the same time.
CTAP
IMPRESSION:
No hydronephrosis or renal calculi.
There is new asymmetric enlargement and hyperdense appearance along the left psoas suspicious for a small retroperitoneal hematoma.
Prostatomegaly. The urinary bladder is mildly distended with mild circumferential urinary bladder wall thickening which is similar and may represent chronic outlet obstruction. Cystitis cannot be excluded although is considered less likely.
Severe splenomegaly, similar to prior.
Cholelithiasis.
Seen and examined on the day of discharge which was 12/15/2024. No new complaints. No acute overnight events.
Denied abdominal pain. Eating well urinating and moving bowels well.
Spoke with Rashmi Vásquez Mr. Peralta's daughter. Had a marlyn discussion about risks versus benefits with Eliquis. Would like to start sooner than later for stroke prevention as concerned about this. This phone conversation was completed over the phone
on Mr. Peralta's cell phone. At this time she would like to start/resume Eliquis today and repeat blood work as an outpatient.
NAD
Scleral Anicteric
MMM
No JVD
CTABL
RRR, S1/S2
Soft, NT, ND, BS+
Warm, Dry
AAOx3
Calm
More than 30 minutes spent in discharge including
Final examination of the patient
Summarizing hospital stay
Instructions for continuing care to all relevant caregivers
Preparation of discharge records, prescriptions, and referral forms
Total time spent (in minutes): 33mins
Discharge Plan
-
Patient Disposition: [facility]NF
Discharge Diagnosis/Procedures: Left psoas hematoma
Blood loss anemia
Condition: Good
Diet: As tolerated
Activity: As tolerated
Blood Work: CBC and BMP in 5days - 1 week with medical provider
If not lethargy, palpitations, shortness of breath, abdominal pain, paleness then would obtain stat CBC and speak with medical provider
Others Tests: echocardiogram 12/25/24 @2:00PM at [facility] office in [facility], [address]. please call [phone] with questions
Activity Restrictions/Additional Instructions:
Presented with right flank pain. Had a CT abdomen pelvis that demonstrated left psoas retroperitoneal hematoma. Fortunately remained hemodynamically stable however did note a reduction in hemoglobin from 10.9 in November prior to knee replacement
-8.9 on arrival. Hemoglobin has remained stable throughout. However noted to be on Eliquis and therefore was held starting 12/11/2024. Was evaluated by cardiology which recommended can resume eliquis in 2days. Completed a patient centered
discussion with daughter (risk bleeding, benefit stroke prevention) and they would like to resume Eliquis sooner than later with repeat blood work. Will need outpatient follow up with cardiology.
Eliquis was resumed on 12/15/2024. Will need to repeat CBC and BMP in 5 days to 1 week. If note abdominal pain palpitation shortness of breath paleness lethargy then would repeat CBC sooner, consider holding Eliquis and speak with medical provider
at the same time.
CTAP
IMPRESSION:
No hydronephrosis or renal calculi.
There is new asymmetric enlargement and hyperdense appearance along the left psoas suspicious for a small retroperitoneal hematoma.
Prostatomegaly. The urinary bladder is mildly distended with mild circumferential urinary bladder wall thickening which is similar and may represent chronic outlet obstruction. Cystitis cannot be excluded although is considered less likely.
Severe splenomegaly, similar to prior.
Cholelithiasis.
Referrals:
Eduardo Wright DO [Family Provider, [facility]]
Yadira Lane PA-C [[employer]ified Professional Person[employer], Cardiology] - 12/31/24 3:20 pm
Referral Note: You have a cardiology follow-up appointment at the [place] office with Dr. Diaz's physician assistant principal, Yadira. Please call with questions
Prescriptions:
Continued
metoprolol succinate 50 mg Tablet Extended Release 24 Hr
50 mg PO BID
ascorbic acid (vitamin C) [Vitamin C] 500 mg Tablet
500 mg PO DAILY
omeprazole 20 mg Capsule,Delayed Release(Dr/Ec)
20 mg PO DAILY
vitamin B complex Capsule
1 cap PO DAILY
Eliquis 5 mg Tablet
5 mg PO BID
ferrous sulfate [Iron (ferrous sulfate)] 325 mg (65 mg iron) Tablet
325 mg PO BID
atorvastatin 10 mg Tablet
10 mg PO DAILY Qty: 30 1RF
ondansetron HCl 4 mg tablet
4 mg PO Q6H PRN (Reason: nausea and vomiting) Qty: 30 0RF
calcium carbonate 500 mg calcium (1,250 mg) Tablet
500 mg PO BID Qty: 30 0RF
acetaminophen [Tylenol Extra Strength] 500 mg tablet
1,000 mg PO Q6H Qty: 30 0RF
Rx Instructions:
DO NOT exceed >4000 mg daily.
tramadol 50 mg tablet
50 - 100 mg PO Q6H PRN (Reason: moderate-severe pain) Qty: 30 0RF
Rx Instructions:
1 tab for moderate pain, 2 if severe.
Dx total joint.
lidocaine 4 % adhesive patch,medicated
2 patch topical DAILY
Rx Instructions:
Over the counter. 12 hours on, 12 hours off.
Apply to sides of right knee/thigh.
amiodarone [Pacerone] 200 mg tablet
200 mg PO DAILY
ethacrynic acid [Edecrin] 25 mg tablet
25 mg PO DAILY
Rx Instructions:
HOLD IF systolic blood pressure <115 while on post-surgical narcotics.
famotidine [Pepcid] 20 mg tablet
20 mg PO HS
Rx Instructions:
Take nightly while on post-surgical pain meds to reduce GI upset.
tamsulosin 0.4 mg capsule
0.4 mg PO BID
Rx Instructions:
HOLD IF systolic blood pressure <100 while on post-surgical narcotics.
ramipril 2.5 mg capsule
2.5 mg PO BID
Rx Instructions:
HOLD IF systolic blood pressure <130 while on post-surgical narcotics.
finasteride 5 mg tablet
5 mg PO DAILY
dapagliflozin propanediol [Farxiga] 10 mg tablet
10 mg PO DAILY
Discharge Orders:
Discharge Patient (As Directed); Ordered 12/15/24
Ordered By: Migue Thomason
Discharge Date and Time
Print Language: SLOVENIAN
[2024-12-15] MEDS: ELIQUIS 5 MG PO (14:08)
[2024-12-15] MEDS: TYLENOL 650 MG PO (14:14)
[2024-12-15 15:18] VITALS: BP 123/51
== END 2024-12-15 17:27 | DRG 813 ==
LOC: 2 NORTH 23:41
PROVIDERS: Hospitalist; ADMITTING PHYSICIAN Hospitalist; ATTENDING PHYSICIAN Hospitalist; CONSULT PHYSICIAN Internal Medicine Cardiovascular Disease; EMERGENCY PHYSICIAN Emergency Medicine; FAMILY PHYSICIAN Student in an Organized Health Care Education/Training Program
DX: D68.32 Hemorrhagic disorder due to extrinsic circulating anticoagulants (principal); K68.3 Retroperitoneal hematoma; D62 Acute posthemorrhagic anemia; E87.1 Hypo-osmolality and hyponatremia; I48.92 Unspecified atrial flutter; I50.22 Chronic systolic (congestive) heart failure; I42.8 Other cardiomyopathies; M17.11 Unilateral primary osteoarthritis, right knee; I11.0 Hypertensive heart disease with heart failure; I48.0 Paroxysmal atrial fibrillation; Z66 Do not resuscitate; Z79.01 Long term (current) use of anticoagulants; Z79.82 Long term (current) use of aspirin; Z79.899 Other long term (current) drug therapy
CPT/HCPCS: 74176; 80048; 80053; 81003; 81015; 82607; 82728; 82746; 82962; 83540; 83550; 83735; 83930; 83935; 84300; 84443; 85025; 85027; 85045; 85610; 87070; 87086; 97110; 97116; 97162; 97166; 97535; 99284